=== PATIENT | female | born 1995 | race Two or more races ===

== ENCOUNTER 2020-06-04 13:30 | Outpatient (REF) | payer MEDICAID, SELFPAY ==
--- NOTE | 2020-06-04 13:39 | US_ITS ---
EXAMINATION: US DIAGNOSTIC ULTRASOUND BREAST (AXILLA), RIGHT CLINICAL INFORMATION: 24-year-old female with fullness and intermittent tenderness right axilla for approximately 2 weeks. No palpable breast mass or discharge. Family history breast cancer maternal aunt and paternal aunt. No prior imaging. COMPARISON: None. TECHNIQUE: Ultrasound right axilla is targeted to the area of clinical concern. Patient is able to point to area of concern at time of imaging. Grayscale imaging and color Doppler are performed without and with harmonics. FINDINGS: There is no cystic or solid mass in the right axilla. No lymphadenopathy. No skin thickening or edema tracking in soft tissue planes. Results are discussed with the patient at time of visit. US/US breast RT limited IMPRESSION: Unremarkable ultrasound right axilla. No lymphadenopathy or other mass. ASSESSMENT: BI-RADS 1: Negative RECOMMENDATION: Patient should be managed based on the clinical impression.
== END 2020-06-04 13:31 | disposition home or self-care (01) ==
LOC: HO.MAMMO 13:30
PROVIDERS: PCP Student in an Organized Health Care Education/Training Program; Visit Provider Student in an Organized Health Care Education/Training Program
DX: R22.31 Localized swelling, mass and lump, right upper limb (principal)
CPT/HCPCS: 76642

== ENCOUNTER 2020-11-02 11:52 | Outpatient (REF) | payer OTHER, SELFPAY ==
[2020-11-02 14:14] LABS: MANUAL DIFF FLAG NO
[2020-11-02 14:23] LABS: Basophils Percent Auto 0.3 % (0-2); Eosinophils Percent Auto 0.6 % (0-4); Hematocrit 39.3 % (37-47); Hemoglobin 12.8 g/dl (12.0-16.0); Lymphocytes Absolute Auto 1.4 X10*3/uL (1.2-4.9); Lymphocytes Percent Auto 43.4 % (20-40); Mean Corpuscular HGB Conc 32.6 g/dl (31.0-35.0); Mean Corpuscular Hemoglobin 27.6 pg (27.0-33.0); Mean Corpuscular Volume 84.9 fL (80-98); Mean Platelet Volume 11.4 fL (9.4-12.3); Monocytes Absolute Auto 0.2 X10*3/uL (0.1-1.2); Monocytes Percent Auto 7.2 % (2-11); Neutrophils Absolute Auto 1.5 X10*3/uL (2.0-8.3); Neutrophils Percent Auto 48.5 % (45-73); Platelet Count 229 X10*3/uL (160-400); Red Blood Count 4.63 X10*6/uL (4.20-5.50); Red Cell Distribution Width 12.3 % (11.0-16.0); White Blood Count 3.2 X10*3/uL (4.8-10.8)
[2020-11-02 14:53] LABS: Alanine Aminotransferase 26 U/L (0-31); Albumin Level 4.4 g/dL (3.5-5.0); Alkaline Phosphatase 62 U/L (39-117); Anion Gap 14 (12-20); Aspartate Amino Transferase 26 U/L (5-31); Bilirubin Total 0.5 mg/dL (0.0-1.0); Blood Urea Nitrogen 9 mg/dL (9-16); Calcium 8.8 mg/dL (8.4-10.2); Carbon Dioxide 23 mmol/L (22-29); Chloride 106 mmol/L (96-108); Cholesterol 172 mg/dL; Estimated Glomerular Filt Rate > 60; Glucose Fasting 90 mg/dL (60-99); HDL Cholesterol 34 mg/dL; LDL Cholesterol Calculated 117 mg/dl; Potassium 3.9 mmol/L (3.3-5.1); Sodium 139 mmol/L (135-145); Total Protein 7.5 g/dL (6.5-8.0); Triglycerides 106 mg/dL
[2020-11-02 15:16] LABS: TSH reflex Free T4 1.27 uIU/mL (0.32-4.0)
[2020-11-02 15:53] LABS: Vitamin B12 259 pg/mL (200-900)
[2020-11-07 08:17] LABS: Vitamin D 25-OH, D2 <4 ng/mL; Vitamin D 25-OH, D3 24 ng/mL; Vitamin D 25-OH, Total 24 ng/mL (30-100)
[2020-11-08 08:57] LABS: Testosterone, Total 25 ng/dL (2-45)
== END 2020-11-02 11:53 | disposition home or self-care (01) ==
LOC: HO.HMGCLDS 11:52
PROVIDERS: PCP Internal Medicine; Visit Provider Internal Medicine
DX: L68.0 Hirsutism (principal); R53.83 Other fatigue; R00.0 Tachycardia, unspecified; M79.629 Pain in unspecified upper arm; R10.9 Unspecified abdominal pain; Z76.89 Persons encountering health services in other specified circumstances
CPT/HCPCS: 36415; 80053; 80061; 82306; 82607; 84403; 84443; 85025

== ENCOUNTER 2020-11-14 08:04 | Outpatient (REF) | payer OTHER, SELFPAY ==
--- NOTE | ~2020-11-14 | XR_ITS ---
EXAMINATION: XR SHOULDER, RIGHT CLINICAL INFORMATION: Pain. COMPARISON: None TECHNIQUE: AP neutral, scapular Y, and axillary views of the right shoulder. FINDINGS: The bones and soft tissues are normal. No fracture. Glenohumeral and acromioclavicular alignment is anatomic with normal joint space. No abnormal soft tissue calcifications. XR/XR shoulder LT min 2V IMPRESSION: Normal right shoulder. EXAMINATION: XR SHOULDER, LEFT CLINICAL INFORMATION: Pain. COMPARISON: None TECHNIQUE: AP neutral, scapular Y, and axillary views of the left shoulder. FINDINGS: The bones and soft tissues are normal. No fracture. Glenohumeral and acromioclavicular alignment is anatomic with normal joint space. No abnormal soft tissue calcifications. IMPRESSION: Normal left shoulder.
--- NOTE | ~2020-11-14 | XR_ITS ---
EXAMINATION: XR SHOULDER, RIGHT CLINICAL INFORMATION: Pain. COMPARISON: None TECHNIQUE: AP neutral, scapular Y, and axillary views of the right shoulder. FINDINGS: The bones and soft tissues are normal. No fracture. Glenohumeral and acromioclavicular alignment is anatomic with normal joint space. No abnormal soft tissue calcifications. XR/XR shoulder RT min 2V IMPRESSION: Normal right shoulder. EXAMINATION: XR SHOULDER, LEFT CLINICAL INFORMATION: Pain. COMPARISON: None TECHNIQUE: AP neutral, scapular Y, and axillary views of the left shoulder. FINDINGS: The bones and soft tissues are normal. No fracture. Glenohumeral and acromioclavicular alignment is anatomic with normal joint space. No abnormal soft tissue calcifications. IMPRESSION: Normal left shoulder.
== END 2020-11-14 08:05 | disposition home or self-care (01) ==
LOC: HO.HOSX 08:04
PROVIDERS: Visit Provider Physician Assistant
DX: G24.9 Dystonia, unspecified (principal); M25.512 Pain in left shoulder; M25.511 Pain in right shoulder
CPT/HCPCS: 73030; 99202

== ENCOUNTER 2020-11-21 09:10 | Outpatient (REF) | payer OTHER, SELFPAY ==
--- NOTE | ~2020-11-21 | US_ITS ---
EXAMINATION: US ABDOMEN COMPLETE CLINICAL INFORMATION: Unspecified abdominal pain. COMPARISON: None TECHNIQUE: Real-time imaging of the abdominal viscera. FINDINGS: PANCREAS: Normal. ABDOMINAL AORTA: The proximal, mid, and distal segments are normal in caliber. INFERIOR VENA CAVA: Visualized portions are normal. LIVER: Normal. The liver is normal in size. The liver contour is normal. Parenchymal echogenicity is normal. No focal hepatic lesion. There is no intrahepatic biliary duct dilatation seen. GALLBLADDER: Normal. The gallbladder is physiologically distended without evidence of stones, sludge, polyps, wall thickening or pericholecystic fluid. COMMON BILE DUCT: Normal in caliber measuring 0.3 cm in diameter. RIGHT KIDNEY: Normal. No hydronephrosis. No renal calculi or focal parenchymal lesions. The kidney measures 10.8 cm in maximum dimension. LEFT KIDNEY: Normal. No hydronephrosis. No renal calculi or focal parenchymal lesions. The kidney measures 10.8 cm in maximum dimension. SPLEEN: Normal. The spleen measures 8.8 cm in maximum dimension. FREE FLUID: None. US/US abdomen complete IMPRESSION: Unremarkable exam.
== END 2020-11-21 09:11 | disposition home or self-care (01) ==
LOC: HO.HMGCX 09:10
PROVIDERS: Visit Provider Internal Medicine
DX: R10.9 Unspecified abdominal pain (principal)
CPT/HCPCS: 76700

== ENCOUNTER 2021-01-01 14:03 | Outpatient (REF) | payer OTHER, SELFPAY ==
[2021-01-03 19:31] LABS: TS Negative Control Passed; TS Panel A 0; TS Panel B 0; TS Positive Control Passed; TSpotTB Negative (SeeBelow)
== END 2021-01-01 14:04 | disposition home or self-care (01) ==
LOC: HO.LAB 14:03
PROVIDERS: PCP Internal Medicine; Visit Provider Internal Medicine
DX: Z11.1 Encounter for screening for respiratory tuberculosis (principal)
CPT/HCPCS: 36415; 86481

== ENCOUNTER → 2021-01-10 13:01 | Outpatient (BNVA) | payer OTHER, SELFPAY | PROVIDERS: PCP Internal Medicine; Visit Provider Internal Medicine | DX: L68.0 Hirsutism (principal); E55.9 Vitamin D deficiency, unspecified | CPT/HCPCS: 99202 ==

== ENCOUNTER 2021-01-11 07:28 | Outpatient (REF) | payer OTHER, SELFPAY ==
[2021-01-11 08:31] LABS: Estimated Average Glucose 94 mg/dL; Hemoglobin A1c % 4.9 %
[2021-01-11 08:34] LABS: Glucose Fasting 93 mg/dL (60-99)
[2021-01-11 08:41] LABS: Alanine Aminotransferase 14 U/L (0-31); Albumin Level 4.4 g/dL (3.5-5.0); Alkaline Phosphatase 54 U/L (39-117); Anion Gap 13 (12-20); Aspartate Amino Transferase 19 U/L (5-31); Bilirubin Total 0.4 mg/dL (0.0-1.0); Blood Urea Nitrogen 9 mg/dL (9-16); Calcium 8.9 mg/dL (8.4-10.2); Carbon Dioxide 22 mmol/L (22-29); Chloride 105 mmol/L (96-108); Cholesterol 154 mg/dL; Estimated Glomerular Filt Rate > 60; Glucose Random 93 mg/dL (60-115); HDL Cholesterol 37 mg/dL; LDL Cholesterol Calculated 94 mg/dl; Potassium 3.9 mmol/L (3.3-5.1); Sodium 136 mmol/L (135-145); Total Protein 7.4 g/dL (6.5-8.0); Triglycerides 118 mg/dL
[2021-01-11 09:02] LABS: Free T4 (Free Thyroxine) 1.01 ng/dL (0.71-1.85); HCG Quantitative < 2 mIU/mL; Thyroid Stimulating Hormone 2.01 uIU/mL (0.32-4.0); Vitamin D 25-OH Total 24.7 ng/mL (>30)
[2021-01-11 10:32] LABS: Glucose 1 Hour 137 mg/dL
[2021-01-11 11:04] LABS: Glucose 2 Hour 101 mg/dL
[2021-01-12 19:02] LABS: Follicle Stimulating Hormone 4.1 mIU/mL; Prolactin 14.1 ng/mL
[2021-01-12 21:02] LABS: LDL Cholesterol Direct 99 mg/dL (<100)
[2021-01-14 17:27] LABS: DHEA Sulfate 279 mcg/dL (18-391); Sex Hormone Binding Globulin 16 nmol/L (17-124)
[2021-01-14 18:01] LABS: Adrenocorticotropic Hormone 11 pg/mL (6-50)
[2021-01-16 15:46] LABS: Testosterone, Free 3.8 pg/mL (0.1-6.4); Testosterone, Total 20 ng/dL (2-45)
[2021-01-16 18:17] LABS: Androstenedione 185 ng/dL
== END 2021-01-11 07:29 | disposition home or self-care (01) ==
LOC: HO.LAB 07:28
PROVIDERS: PCP Internal Medicine; Visit Provider Internal Medicine
DX: L68.0 Hirsutism (principal); E55.9 Vitamin D deficiency, unspecified
CPT/HCPCS: 36415; 80053; 80061; 82024; 82157; 82306; 82533; 82627; 82670; 82681; 83001; 83002; 83036; 83498; 83721; 84146; 84270; 84402; 84403; 84439; 84443; 84702

== ENCOUNTER → 2021-04-24 11:58 | Outpatient (BNVA) | payer OTHER, SELFPAY | PROVIDERS: PCP Internal Medicine; Visit Provider Internal Medicine ==

== ENCOUNTER 2021-05-03 13:55 | Outpatient (REF) | payer OTHER, SELFPAY ==
[2021-05-03 14:55] LABS: Influenza A PCR NEGATIVE (Negative); Influenza B PCR NEGATIVE (Negative); Resp Syncy Virus RNA Qual PCR NEGATIVE (Negative); SARS COV2 PCR INHOUSE NEGATIVE (Negative)
== END 2021-05-03 13:56 | disposition home or self-care (01) ==
LOC: HO.LNP 13:55
PROVIDERS: Visit Provider Physician Assistant Medical
DX: Z20.822 Contact with and (suspected) exposure to COVID-19 (principal); J06.9 Acute upper respiratory infection, unspecified
CPT/HCPCS: 0241U

== ENCOUNTER 2022-11-07 12:24 | Outpatient (REF) | payer OTHER, SELFPAY ==
[2022-11-07 13:57] LABS: MANUAL DIFF FLAG NO
[2022-11-07 14:06] LABS: Basophils Percent Auto 0.4 % (0-2); Eosinophils Absolute Auto 0.1 X10*3/uL (0.0-0.4); Eosinophils Percent Auto 1.6 % (0-4); Hematocrit 41.3 % (37.0-47.0); Hemoglobin 13.5 g/dl (12.0-16.0); Imm Gran Abs Auto 0.02 X10*3/uL (0.00-0.03); Imm Gran Pct Auto 0.3 % (0.0-0.4); Lymphocytes Absolute Auto 1.8 X10*3/uL (1.2-4.9); Lymphocytes Percent Auto 27.2 % (20-40); Mean Corpuscular HGB Conc 32.7 g/dl (31.0-35.0); Mean Corpuscular Hemoglobin 28.5 pg (27.0-33.0); Mean Corpuscular Volume 87.1 fL (80.0-98.0); Mean Platelet Volume 11.1 fL (9.4-12.3); Monocytes Absolute Auto 0.4 X10*3/uL (0.1-1.2); Monocytes Percent Auto 6.4 % (2-11); Neutrophils Absolute Auto 4.3 x10*3/uL (2.0-8.3); Neutrophils Percent Auto 64.1 % (45-73); Platelet Count 289 X10*3/uL (160-400); Red Blood Count 4.74 X10*6/uL (4.20-5.50); Red Cell Distribution Width 12.3 % (11.0-16.0); White Blood Count 6.7 X10*3/uL (4.8-10.8)
[2022-11-07 14:31] LABS: Alanine Aminotransferase 16 U/L (0-31); Albumin Level 4.2 g/dL (3.5-5.0); Alkaline Phosphatase 51 U/L (39-117); Anion Gap 13 (12-20); Aspartate Amino Transferase 23 U/L (5-31); Bilirubin Total 0.6 mg/dL (0.0-1.0); Blood Urea Nitrogen 8 mg/dL (9-16); Calcium 8.9 mg/dL (8.4-10.2); Carbon Dioxide 23 mmol/L (22-29); Chloride 108 mmol/L (96-108); Estimated Glomerular Filt Rate > 60; Glucose Random 81 mg/dL (60-115); Potassium 4.1 mmol/L (3.3-5.1); Sodium 140 mmol/L (135-145); Total Protein 7.6 g/dL (6.5-8.0)
[2022-11-07 14:34] LABS: TSH reflex Free T4 1.79 uIU/mL (0.32-4.0)
[2022-11-09 23:20] LABS: TS Negative Control Passed; TS Panel A 1; TS Panel B 0; TS Positive Control Passed; TSpotTB Negative (Negative)
[2022-11-14 13:03] LABS: Vitamin D 25-OH, D2 <4 ng/mL; Vitamin D 25-OH, D3 19 ng/mL; Vitamin D 25-OH, Total 19 ng/mL (30-100)
== END 2022-11-07 12:25 | disposition home or self-care (01) ==
LOC: HO.HMGCLDS 12:24
PROVIDERS: PCP Internal Medicine; Visit Provider Internal Medicine
DX: R53.83 Other fatigue (principal); E55.9 Vitamin D deficiency, unspecified; F41.9 Anxiety disorder, unspecified; B35.1 Tinea unguium; Z11.1 Encounter for screening for respiratory tuberculosis
CPT/HCPCS: 36415; 80053; 82306; 84443; 85025; 86481; 87101; 87220

== ENCOUNTER 2023-01-06 08:51 | Outpatient (AMB) | payer OTHER, SELFPAY ==
--- NOTE | 2023-01-06 10:09 | MHC.OFFWIV ---
Intake Vital Signs 01/06/23 10:10 Height 5 ft 5 in BP 110/70 Blood Pressure Location Lt brachial Position Sitting Pulse 83 Pulse Source Pulse Oximeter Temp 96.1 F L Temp Source Temporal Artery Scan Pulse Oximetry (%) 99 Oxygen Delivery Method Room Air Intake Visit Reasons: EST/fatigue/[id number] Intake Note: Pt is here c/o feeling fatigue for a few days. Pt states her arms and joints also feel sore. Patient Tobacco Use Status: Never used Tobacco Allergies No Known Allergies Allergy (Verified 01/06/23 10:33) Do you need a note to return to daycare/school/sports/work: No HPI EST/fatigue/[id number] HPI Details 27-year-old female presents to the office for a sick visit. Patient is complaining of feeling tired since yesterday night. Could not go to school today because of fatigue. She is also complaining of some pain in the foot. 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 She is requesting a note for school. [facility] Medical History Vitamin D deficiency Family History Maternal Aunt Breast cancer Paternal Aunt Breast cancer Father Kidney stones High cholesterol Mother Hypothyroid Social History Housing: House Alcohol intake: never Patient Tobacco Use Status: Never used Tobacco e-Cigarette/Vaping Use: Never Used Current occupational status: unemployed Current occupation: right handed Cognitive needs: No Hearing needs: No Vision needs: No Physical Exam Vital Signs: Last Vital Signs Temp 96.1 F L 01/06/23 10:10 Pulse 83 01/06/23 10:10 BP 110/70 01/06/23 10:10 Pulse Ox 99 01/06/23 10:10 Oxygen Delivery Method Room Air 01/06/23 10:10 Const General: cooperative and healthy appearing Nutritional Appearance: well nourished Orientation/consciousness: patient oriented x3 Limitations: no limitations HEENT Head: Yes normal to inspection Eyes General: appearance normal, both eyes and all related structures Neck Neck: Yes normal visual inspection Chest Chest palpation & inspection: normal palpation of entire chest wall Resp Effort & Inspection: normal respiratory effort Neuro General: patient oriented x3 Assessment & Plan Assessment & Plan (1) Fatigue: Code(s): R53.83 - Other fatigue Plan: Self-limiting illness. Note for school given. Coding Level of Care Code Est Pt Level 3 (82686) Diagnoses Fatigue R53.83
[2023-01-06 10:10] VITALS: BP 110/70; PULSE 83; TEMP 35.6; O2SAT 99
== END 2023-01-06 11:36 | disposition home or self-care (01) ==
PROVIDERS: PCP Internal Medicine; Visit Provider Internal Medicine
DX: R53.83 Other fatigue (principal)
CPT/HCPCS: 99213

== ENCOUNTER 2023-01-06 09:09 | Outpatient (REF) | payer OTHER, SELFPAY ==
[2023-01-06 12:38] LABS: Alanine Aminotransferase 11 U/L (0-31); Albumin Level 4.3 g/dL (3.5-5.0); Alkaline Phosphatase 52 U/L (39-117); Anion Gap 8 (12-20); Aspartate Amino Transferase 15 U/L (5-31); Bilirubin Direct 0.2 mg/dL (0.0-0.5); Bilirubin Total 0.4 mg/dL (0.0-1.0); Blood Urea Nitrogen 13 mg/dL (9-16); Calcium 9.2 mg/dL (8.4-10.2); Carbon Dioxide 27 mmol/L (22-29); Chloride 107 mmol/L (96-108); Estimated Glomerular Filt Rate > 60; Glucose Random 84 mg/dL (60-115); Potassium 3.9 mmol/L (3.3-5.1); Sodium 138 mmol/L (135-145); Total Protein 7.5 g/dL (6.5-8.0)
== END 2023-01-06 09:10 | disposition home or self-care (01) ==
LOC: HO.HMGCLDS 09:09
PROVIDERS: PCP Internal Medicine; Visit Provider Internal Medicine
DX: B35.1 Tinea unguium (principal)
CPT/HCPCS: 36415; 80053; 82248

== ENCOUNTER 2023-04-28 11:16 | Outpatient (AMB) | payer OTHER, SELFPAY ==
[2023-04-28 11:16] VITALS: BP 112/78; PULSE 104; O2SAT 100; BMI 31.7
--- NOTE | 2023-04-28 11:16 | A.OFFPC_ITS ---
Vital Signs 04/28/23 11:16 Height 5 ft 5 in Weight 190 lb 8 oz BMI 31.7 BP 112/78 Blood Pressure Location Rt brachial Position Sitting Pulse 104 H Pulse Source Pulse Oximeter Pulse Oximetry (%) 100 Oxygen Delivery Method Room Air Intake Visit Reasons: PE- NEEDS PHQ9/THRIVE Allergies No Known Allergies Allergy (Verified 04/28/23 11:16) Medication List - Last Reconciled 04/28/23 by Luann Lopez MD cholecalciferol (vitamin D3) 25 mcg PO DAILY 90 days dextroamphetamine-amphetamine 15 mg ER (Adderall XR) 15 mg PO DAILY terbinafine HCl 250 mg PO DAILY Tobacco use date assessed: 04/28/23 Dental Screening Dental Screen Date: 04/28/23 Did you have a dental visit in the last 12 months?: Yes Did you have a dental problem in the last 6 months where you did not have access to dental care?: No Was dental information given to patient?: Patient has dentist HPI PE- NEEDS PHQ9/THRIVE HPI Details Patient is 27-year-old female came in today for physical exam Patient continued to complain of hirsutism and would like to be evaluated for that , she does not want to have appointment with OBGYN Also having difficulty losing weight her BMI is 31.7, patient says that she is controlling her diet and exercise and still can not lose weight I am booking her appointment with a dietitian Patient have generalized anxiety disorder she has tried fluoxetine in the past but did not take it for long enough She says that during the day she is okay but at night when she lays down to sleep she can not sleep as she start thinking. Patient says that the days she works she is tired so she fall asleep but when she is not working it is difficult for her to sleep I have sent few tablets of Xanax patient may take that 1 hour before bedtime as needed Patient have vitamin-D deficiency for that she is taking supplement Lab order placed to be done fasting We will create a telemedicine visit in 3 weeks to follow-up on hurt sleep pattern as well as labs and ultrasound report. Physical exam 1 year [facility] Medical History Vitamin D deficiency Family History Maternal Aunt Breast cancer Paternal Aunt Breast cancer Father Kidney stones High cholesterol Mother Hypothyroid Social History Housing: House Alcohol intake: never Patient Tobacco Use Status: Never used Tobacco e-Cigarette/Vaping Use: Never Used service: No Current occupational status: unemployed Current occupation: right handed Cognitive needs: No Hearing needs: No Vision needs: No Questionnaire PHQ-9 Over the last 2 weeks, how often have you been bothered by any of the following problems? 1. Little interest or pleasure in doing things: several days 2. Feeling down, depressed, or hopeless: several days 3. Trouble falling or staying asleep, or sleeping too much: nearly every day 4. Feeling tired or having little energy: nearly every day 5. Poor appetite or overeating: more than half the days 6. Feeling bad about yourself - or that you are a failure or have let yourself or your family down: not at all 7. Trouble concentrating on things, such as reading the newspaper or watching television: nearly every day 8. Moving or speaking so slowly that other people could have noticed. Or the opposite - being so fidgety or restless that you have been moving around a lot more than usual: nearly every day 9. Thoughts that you would be better off or of hurting yourself in some way: not at all Total score: 16 Depression Screening Interpretation: Positive Depression Screening Follow-up: Existing condition and New Medication prescribed Depression Screening Done: Yes 36191 - PHQ-9 Billing: Yes Source: Developed by Drs. Adam Mir, Bing Oviedo, Fortino Dodson and colleagues, with an educational spike from [employer]. Thrive Questionnaire I am a: Patient What is your living situation today?: I have a steady place to live Within the past 12 months, did the food you bought not last and you didn't have the money to get more?: Never true Within the past 12 months, did you worry whether your food would run out before you got money to buy more?: Never true Please select the resources that you would like help with: None Currently or been in a relationship where the following occur: no concerns reported AUDIT C Alcohol Use Questionnaire (AUDIT-C) 1. How often do you have a drink containing alcohol?: Never 3. How often do you have six or more drinks on one occasion?: Never Total Score: 0 Score Reviewed/Action Taken: Yes AGUS-7 AMB Questionnaire AGUS-7 Feeling nervous, anxious, or on edge: 2 = More than half the days Not being able to stop or control worryin = Several days Worrying too much about different things: 2 = More than half the days Trouble relaxin = Several days Being so restless that it is hard to sit still: 2 = More than half the days Becoming easily annoyed or irritable: 1 = Several days Feeling afraid as if something awful might happen: 1 = Several days Total AGUS-7 score (0-4 normal; 5-9 mild; 10-14 moderate; 15-21 severe): 10 Source: Developed by Drs. Adam Mir, Bing Oviedo, Fortino Dodson and colleagues, with an educational spike from [employer]. AGUS-7 Assessment Billing AGUS-7 Assessment Tool: AGUS-7 Assessment 84229 Review of Systems Const Denies chills, Denies fever(s) and Denies headache(s) Eyes Denies blurry vision ENT Denies headache(s), Denies nasal discharge, Denies nasal obstruction, Denies odynophagia and Denies sinus pain Card Denies chest pain at rest and Denies chest pain with activity Resp Denies cough and Denies hemoptysis GI Denies diarrhea, Denies odynophagia, Denies vomiting and Denies hematemesis Reports as per HPI Musc Denies abnormal gait Skin/Breast Reports as per HPI Neuro Denies Neuro-related abnormal movements, Denies Abnormal speech present, Denies abnormal gait, Denies headache(s) and Denies Sensory deficit (Neuro) Psych Denies mood swings and Denies paranoia Endo Reports as per HPI Dar/Lymph Reports as per HPI Aller/Immun Reports as per HPI Physical exam (Primary Care) Vital Signs: Last Vital Signs Pulse 104 H 04/28/23 11:16 BP 112/78 04/28/23 11:16 Pulse Ox 100 04/28/23 11:16 Oxygen Delivery Method Room Air 04/28/23 11:16 BMI result Body Mass Index 31.7 Tobacco/Smoking Status: Tobacco use Status Tobacco use date assessed 04/28/23 04/28/23 11:24 Patient Tobacco Use Status Never used Tobacco 04/28/23 11:24 e-Cigarette/Vaping Use Never Used 04/28/23 11:24 PHQ-9: PHQ-9 Score PHQ-9: Total score 16 04/28/23 11:53 Depression Screening Interpretation: Positive Depression Screening Follow-up: Existing condition and New Medication prescribed Currently or been in a relationship where the following occur: no concerns reported Const General: cooperative, comfortable and no acute distress Orientation/consciousness: patient oriented x3 HENMT Head: Yes normocephalic and Yes atraumatic Eyes General: appearance normal, both eyes and all related structures Pupils: Equal, round and reactive pupils present EOM: EOMs intact bilaterally Neck Neck: Yes supple and No lymphadenopathy Thyroid: Thyroid normal Lymphatic: no lymphadenopathy noted Chest Breast/axilla palpation: normal palpation of the breasts Resp Effort & Inspection: normal respiratory effort and able to speak in complete sentences Auscultation: clear to auscultation bilaterally Cardio Heart sounds: S1 normal heart sound present and S2 normal heart sound present GI Palpation (GI): Soft to palpation and nontender Auscultation: normal bowel sounds General: Yes no CVA tenderness Back/Spine/Pelvis Back: no CVA tenderness Skin General skin exam: elasticity normal and turgor normal Neuro General: patient oriented x3 and gait normal Cranial nerves: Yes Equal, round and reactive pupils present Speech: No Abnormal speech present Sensory Exam: No Sensory deficit (Neuro) Coordination: tandem gait normal and Romberg test negative Extrem General: Yes normal exam except as noted and No edema Assessment and Plan Assessment & Plan (1) Encounter for general adult medical examination with abnormal findings: Code(s): Z00.01 - Encounter for general adult medical examination with abnormal findings (2) Hirsutism: Code(s): L68.0 - Hirsutism (3) Anxiety, generalized: Code(s): F41.1 - Generalized anxiety disorder (4) Difficulty sleeping: Code(s): G47.9 - Sleep disorder, unspecified (5) Obesity due to excess calories: Code(s): E66.09 - Other obesity due to excess calories Qualifiers: Body mass index: BMI 31.0-31.9 Obesity classification: adult class 1 (BMI 30 - 34.9) Serious obesity comorbidity presence: without serious comorbidity Qualified Code(s): E66.09 - Other obesity due to excess calories; Z68.31 - Body mass index [BMI] 31.0-31.9, adult Plan Patient is 27-year-old female came in today for physical exam Patient continued to complain of hirsutism and would like to be evaluated for that , she does not want to have appointment with OBGYN Also having difficulty losing weight her BMI is 31.7, patient says that she is controlling her diet and exercise and still can not lose weight I am booking her appointment with a dietitian Patient have generalized anxiety disorder she has tried fluoxetine in the past but did not take it for long enough She says that during the day she is okay but at night when she lays down to sleep she can not sleep as she start thinking. Patient says that the days she works she is tired so she fall asleep but when she is not working it is difficult for her to sleep I have sent few tablets of Xanax patient may take that 1 hour before bedtime as needed Patient have vitamin-D deficiency for that she is taking supplement Lab order placed to be done fasting We will create a telemedicine visit in 3 weeks to follow-up on hurt sleep pattern as well as labs and ultrasound report. Physical exam 1 year Orders: Orders US pelvic complete Today L68.0 - Hirsutism Complete Blood Count Auto Diff Today E66.09 - Other obesity due to excess calories, F41.1 - Generalized anxiety disorder, G47.9 - Sleep disorder, unspecified, L68.0 - Hirsutism, Z00.01 - Encounter for general adult medical examination with abnormal findings Lipid Panel Today E66.09 - Other obesity due to excess calories, F41.1 - Generalized anxiety disorder, G47.9 - Sleep disorder, unspecified, L68.0 - Hirsutism, Z00.01 - Encounter for general adult medical examination with abnormal findings TSH reflex Free T4 Today E66.09 - Other obesity due to excess calories, F41.1 - Generalized anxiety disorder, G47.9 - Sleep disorder, unspecified, L68.0 - Hirsutism, Z00.01 - Encounter for general adult medical examination with abnormal findings Testosterone, Total Today E66.09 - Other obesity due to excess calories, F41.1 - Generalized anxiety disorder, G47.9 - Sleep disorder, unspecified, L68.0 - Hirsutism, Z00.01 - Encounter for general adult medical examination with abnormal findings Comprehensive Independence. Panel Fast Today E66.09 - Other obesity due to excess calories, F41.1 - Generalized anxiety disorder, G47.9 - Sleep disorder, unspecified, L68.0 - Hirsutism, Z00.01 - Encounter for general adult medical examination with abnormal findings Medications: New pantoprazole 20 mg PO DAILY 30 tabs 0RF alprazolam (Xanax) 0.25 mg PO BEDTIME PRN 30 tabs 0RF sleep Discontinued terbinafine HCl Discontinued Reason: Doctor's Order 250 mg PO DAILY 30 tabs 2RF Coding Level of Care Code Est Pt Prev Care 18-39y(70503) Diagnoses Encounter for general adult medical examination with abnormal findings Z00.01 Hirsutism L68.0 Anxiety, generalized F41.1 Difficulty sleeping G47.9 Class 1 obesity due to excess calories without serious comorbidity with body mass index (BMI) of 31.0 to 31.9 in adult E66.09; Z68.31 Body mass index: BMI 31.0-31.9 Obesity classification: adult class 1 (BMI 30 - 34.9) Serious obesity comorbidity presence: without serious comorbidity Additional Codes AGUS-7 Assessment Billing - AGUS-7 Assessment Tool: AGUS-7 Assessment [id number] ([id number])
== END 2023-04-28 12:45 | disposition home or self-care (01) ==
PROVIDERS: Visit Provider Internal Medicine
DX: Z00.00 Encounter for general adult medical examination without abnormal findings (principal); L68.0 Hirsutism; F41.1 Generalized anxiety disorder; G47.9 Sleep disorder, unspecified; E66.09 Other obesity due to excess calories; Z68.31 Body mass index [BMI] 31.0-31.9, adult
CPT/HCPCS: 96127; 99395

== ENCOUNTER 2023-05-16 06:30 | Outpatient (REF) | payer OTHER, SELFPAY ==
[2023-05-16 11:11] LABS: MANUAL DIFF FLAG NO
[2023-05-16 11:17] LABS: Basophils Percent Auto 0.5 % (0-2); Eosinophils Absolute Auto 0.1 X10*3/uL (0.0-0.4); Eosinophils Percent Auto 2.1 % (0-4); Hematocrit 40.5 % (37.0-47.0); Imm Gran Abs Auto 0.02 X10*3/uL (0.00-0.03); Imm Gran Pct Auto 0.3 % (0.0-0.4); Lymphocytes Absolute Auto 2.5 X10*3/uL (1.2-4.9); Mean Corpuscular HGB Conc 32.1 g/dl (31.0-35.0); Mean Corpuscular Hemoglobin 28.6 pg (27.0-33.0); Mean Platelet Volume 11.2 fL (9.4-12.3); Monocytes Absolute Auto 0.3 X10*3/uL (0.1-1.2); Monocytes Percent Auto 5.2 % (2-11); Neutrophils Absolute Auto 3.3 x10*3/uL (2.0-8.3); Neutrophils Percent Auto 51.9 % (45-73); Platelet Count 273 X10*3/uL (160-400); Red Blood Count 4.55 X10*6/uL (4.20-5.50); Red Cell Distribution Width 12.6 % (11.0-16.0); White Blood Count 6.3 X10*3/uL (4.8-10.8)
[2023-05-16 11:46] LABS: Alanine Aminotransferase 14 U/L (0-31); Albumin Level 4.2 g/dL (3.5-5.0); Alkaline Phosphatase 59 U/L (39-117); Anion Gap 11 (12-20); Aspartate Amino Transferase 18 U/L (5-31); Bilirubin Total 0.4 mg/dL (0.0-1.0); Blood Urea Nitrogen 11 mg/dL (9-16); Calcium 8.8 mg/dL (8.4-10.2); Carbon Dioxide 26 mmol/L (22-29); Chloride 103 mmol/L (96-108); Cholesterol 137 mg/dL (<200); Estimated Glomerular Filt Rate > 60; Glucose Fasting 83 mg/dL (60-99); HDL Cholesterol 39 mg/dL (>40); LDL Cholesterol Calculated 72 mg/dL (<100); Sodium 136 mmol/L (135-145); Total Protein 7.6 g/dL (6.5-8.0); Triglycerides 132 mg/dL (<150)
[2023-05-16 11:54] LABS: TSH reflex Free T4 2.47 uIU/mL (0.32-4.0)
[2023-05-20 16:03] LABS: Testosterone, Total 27 ng/dL (2-45)
== END 2023-05-16 06:31 | disposition home or self-care (01) ==
LOC: HO.HMGCLDS 06:30
PROVIDERS: PCP Internal Medicine; Visit Provider Internal Medicine
DX: Z00.01 Encounter for general adult medical examination with abnormal findings (principal); L68.0 Hirsutism; F41.1 Generalized anxiety disorder; G47.9 Sleep disorder, unspecified; E66.09 Other obesity due to excess calories
CPT/HCPCS: 36415; 80053; 80061; 84403; 84443; 85025

== ENCOUNTER 2023-05-18 10:09 | Outpatient (AMB) | payer OTHER, SELFPAY ==
[2023-05-18 10:11] VITALS: BMI 30.6
--- NOTE | 2023-05-18 10:11 | MHC.OFFVIS ---
Intake Vital Signs 05/18/23 10:11 Height 5 ft 5 in Weight 184 lb BMI 30.6 Intake Visit Reasons: New patient Annual Intake Note: Having facial hair, weight gain, and acne. And was suggested that it can possible be hormonal issue. 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 She states she is a virgin and does not wash to have a pelvic exam. She is 27 years old she says she has had 2 of the 3 Gardasil vaccines and will be getting the 3rd. She says she had told her PCC she did not want to have a OBGYN refer for all but then she later spoke to her and said it would be okay but she actually is still thought she was coming to talk to me about her hormones she had seen and frozen foods manager 2 years ago for this exact same concern about increased facial hair and acne and had a complete full panel of testing done by the frozen foods manager all results came back as normal. There is a discussion in the chart reference sing discussion of the values and that most likely her issue was somewhat genetic. Patient says she has normal periods they are not too bad in terms of cramping or heaviness they last about 4-5 days. She did notice that the facial hair did start more when she gained some weight in years past she also then had a period where she lost weight because of stress in school but has regained that back. She notices increased facial hair body hair hair on on her toes and other places that is very bothersome to her. She says she has a strong family history of cancer. Again she states she gets regular periods and they are not irregular, though this last 1 seemed to be a little bit late according to her dariel. [facility] Medical History Vitamin D deficiency Family History (Updated 05/18/23 @ 10:17 by MICH Phelps) Maternal Aunt Breast cancer Paternal Aunt Breast cancer Father Kidney stones High cholesterol Mother Hypothyroid Paternal Aunt Colon cancer Social History Housing: House Alcohol intake: never Patient Tobacco Use Status: Never used Tobacco e-Cigarette/Vaping Use: Never Used service: No Current occupational status: unemployed Current occupation: right handed Cognitive needs: No Hearing needs: No Vision needs: No Female Reproductive History Menstrual Age of Menarche: 12 Duration of menses: 3-5 days Date of last menstrual period: 05/12/23 control method: none Total pregnancies: 0 Physical Exam Vital Signs: BMI result Body Mass Index 30.6 Const General: healthy appearing, comfortable, no acute distress, well developed and alert Nutritional Appearance: average body habitus Orientation/consciousness: patient oriented x3 Limitations: no limitations HEENT Head: Yes normocephalic Neck Neck: Yes normal visual inspection Thyroid: Thyroid normal Chest Chest palpation & inspection: normal inspection of the chest Breast/axilla inspection: normal inspection of the breasts and normal inspection of the axillae Breast/axilla palpation: normal palpation of the breasts and normal palpation of the axillae Resp Effort & Inspection: normal respiratory effort GI Inspection: Yes normal to inspection, No Abdominal wall edema and No distended Palpation (GI): Soft to palpation and nontender Other: Patient declined pelvic exam. External Female Exam: normal external appearance Neuro General: patient oriented x3 Assessment & Plan Assessment & Plan (1) Well woman exam (no gynecological exam): Comment: Patient declines pelvic exam today. Code(s): Z00.00 - Encounter for general adult medical examination without abnormal findings (2) Cervical cancer screening: Comment: Patient declines pelvic exam and Pap smear today states she is virginal. Reasons for doing Pap smears discussed. Patient is in the process of getting her Gardasil vaccine series. She will decide when she is ready for her her 1st Pap and pelvic. Code(s): Z12.4 - Encounter for screening for malignant neoplasm of cervix (3) Hirsutism: Code(s): L68.0 - Hirsutism Plan -----Discussed in this visit the following: healthy balanced diet, regular and consistent exercise, getting recommended health screens, doing the best she can for her particular health concerns, kegel exercises, pap smear screening and followup recommendations, mammography screening and SBE, normal changes in cycles in her life stage--- . Reviewed cervical cancer screening and that while most cervical cancers are related to the HPV virus it is not possible to say that all are. Discussed reasons for cervical canc screening an she will decide when she is ready d er . Discussed the many things that can contribute to hirsute is Um and discussed and reviewed all all of the labs that she had had done with endocrinology 2 years ago and the discussion per the frozen foods manager that it was most likely familial and not likely to respond to medications that she would consider. Also reviewed labs that were just recently done by her primary care provider she the patient states she went to the lab this weekend and repeat of some of the testing was already ordered by her primary. Also discussed the possible role of control pills to possibly help with acne but they have not necessarily been shown to help with hirsute is Um. Discussed that she should continue these discussions with her primary care provider and the patient herself stated that what she really wants is another endocrinology referral for 2nd opinion because she really wants to deal with the issue of the facial hair. I did again reviewed the discussed recommendations per endocrinology that were in the chart with her. She says she cannot afford laser. She has no plans to become sexually active until marriage. Also she is concerned about the family history of breast cancer she had 1 maternal aunt that at age 43 who is the sister of her mother and she has a paternal aunt who had breast cancer but has recovered all of the family in question are in [place]. I discussed reviewing her family history as best she can ascertain and discussed with her primary care provider as to whether not she is a candidate to discuss genetic screening for breast cancer and if so her primary can place the referral as appropriate. Also discussed the relationship between weight gain and changing hormonal levels and hirsute is Um and increased acne. Suggested weight loss is still a very important part of her self-care. Patient may return when she is ready for pelvic exam or 1 year. I had offered to repeat all of the endocrinology labs for her but she just had and many of them ordered by her primary and they were drawn this weekend. Patient to follow-up with her primary care provider. Coding Level of Care Code New Pt Prev Care 18-39yr([id number] Diagnoses Well woman exam (no gynecological exam) Z00.00 Cervical cancer screening Z12.4 Hirsutism L68.0
== END 2023-05-18 11:03 | disposition home or self-care (01) ==
LOC: HO.HWS 10:09
PROVIDERS: PCP Internal Medicine; Visit Provider Advanced Practice Midwife
DX: Z01.419 Encounter for gynecological examination (general) (routine) without abnormal findings (principal); L68.0 Hirsutism
CPT/HCPCS: 99385

== ENCOUNTER → 2023-05-18 10:09 | Outpatient (BNVA) | payer OTHER, SELFPAY | PROVIDERS: PCP Internal Medicine; Visit Provider Advanced Practice Midwife ==

== ENCOUNTER 2023-05-26 15:23 | Outpatient (REF) | payer OTHER, SELFPAY ==
--- NOTE | ~2023-05-26 | US_ITS ---
EXAMINATION: US PELVIS, LIMITED CLINICAL INFORMATION: Hirsutism LMP: 05/12/2023 COMPARISON: None available. TECHNIQUE: Transabdominal ultrasound was performed technically limited study. The patient was not prepped for the exam. The bladder only has a small amount of fluid within it. FINDINGS: There is is anteverted and measures 7.3 x 3.0 x 5.3 cm. The endometrium is homogeneous and measures 1.0 cm. The ovaries are small. The right ovary measures 1.8 x 1.6 x 1.7 cm for a volume of 2.6 mL. The left ovary measures 2.5 x 9.3 x 1.0 cm for a volume of 1.2 mL. There is no free fluid within the cul-de-sac US/US pelvic limited IMPRESSION: 1. Normal uterus. 2. Small ovaries.
== END 2023-05-26 15:24 | disposition home or self-care (01) ==
LOC: HO.HMGCX 15:23
PROVIDERS: PCP Internal Medicine; Visit Provider Internal Medicine
DX: L68.0 Hirsutism (principal)
CPT/HCPCS: 76857

== ENCOUNTER 2023-06-04 08:37 | Outpatient (AMB) | payer OTHER, SELFPAY ==
--- NOTE | 2023-06-04 08:55 | A.OFFPC_ITS ---
Intake Visit Reasons: 3 week Follow up ~[phone] Allergies No Known Allergies Allergy (Verified 06/04/23 08:55) Medication List - Last Reconciled 06/04/23 by Luann Lopez MD cholecalciferol (vitamin D3) 25 mcg PO DAILY 90 days dextroamphetamine-amphetamine 15 mg ER (Adderall XR) 15 mg PO DAILY pantoprazole 20 mg PO DAILY tretinoin 0.025% (Retin-A) appl topical Tobacco use date assessed: 06/04/23 Dental Screening Dental Screen Date: 06/04/23 Did you have a dental visit in the last 12 months?: Yes Did you have a dental problem in the last 6 months where you did not have access to dental care?: No Was dental information given to patient?: Patient has dentist HPI 3 week Follow up ~[phone] HPI Details Patient is 27-year-old female this is a tele medicine visit Patient suffers from anxiety which causes difficulty sleeping at night I prescribed alprazolam 0.25 mg tablet patient says that she did well for 1 week and then after that medication stopped working This time I am prescribing lorazepam 1 mg tablet at night patient may take that at night as needed to sleep She also have excessive facial hair, we did the ovarian ultrasound which did not show multiple cyst Her test to stay down level is within normal range She had visit with OBGYN but did not wanted to have a pelvic exam I have placed a referral for patient to be evaluated by endocrinology. However she tells me that she is having yellow vaginal discharge and she feels is bacterial overgrowth We talked about taking a sample from vagina I explained the procedure to the patient, she agrees, she will come to our walk-in clinic and we will send the sample over to lab to see why she has yellow discharge. She tells me that she have a strong family history of breast cancer first-degree little tips other side and she would like to be tested for genes. Referral created [facility] Medical History Vitamin D deficiency Family History Maternal Aunt Breast cancer Paternal Aunt Breast cancer Father Kidney stones High cholesterol Mother Hypothyroid Paternal Aunt Colon cancer Social History Housing: House Alcohol intake: never Patient Tobacco Use Status: Never used Tobacco e-Cigarette/Vaping Use: Never Used service: No Current occupational status: unemployed Current occupation: right handed Cognitive needs: No Hearing needs: No Vision needs: No Female Reproductive History Menstrual Age of Menarche: 12 Questionnaire AUDIT C Alcohol Use Questionnaire (AUDIT-C) 1. How often do you have a drink containing alcohol?: Never 3. How often do you have six or more drinks on one occasion?: Never Total Score: 0 Score Reviewed/Action Taken: Yes Review of Systems Const Denies chills and Denies fever(s) ENT Denies epistaxis and Denies nasal discharge Card Denies chest pain Resp Denies chest congestion, Denies cough and Denies hemoptysis GI Denies diarrhea and Denies nausea Skin/Breast Denies rash Neuro Reports no additional complaints Psych Reports no additional complaints Endo Reports no additional complaints Physical exam (Primary Care) Tobacco/Smoking Status: Tobacco use Status Tobacco use date assessed 06/04/23 06/04/23 08:56 Patient Tobacco Use Status Never used Tobacco 06/04/23 08:56 e-Cigarette/Vaping Use Never Used 06/04/23 08:56 Telehealth Telehealth Location of provider rendering services: practice address Location of patient: address on file Patient Identification confirmed using: Name, : Yes Telehealth method: voice only Patient verbally consented to treatment: Yes Patient verbally consented to billing insurance company: Yes Patient informed of any privacy concerns related to visit: Yes Minutes spent on Phone/Video with Pt.: 20 Assessment and Plan Assessment & Plan (1) Hirsutism: Code(s): L68.0 - Hirsutism (2) Family history of breast cancer in first degree relative: Code(s): Z80.3 - Family history of malignant neoplasm of breast (3) Anxiety, generalized: Code(s): F41.1 - Generalized anxiety disorder (4) Difficulty sleeping: Code(s): G47.9 - Sleep disorder, unspecified (5) Vaginal discharge: Code(s): N89.8 - Other specified noninflammatory disorders of vagina Plan Patient is 27-year-old female this is a tele medicine visit Patient suffers from anxiety which causes difficulty sleeping at night I prescribed alprazolam 0.25 mg tablet patient says that she did well for 1 week and then after that medication stopped working This time I am prescribing lorazepam 1 mg tablet at night patient may take that at night as needed to sleep She also have excessive facial hair, we did the ovarian ultrasound which did not show multiple cyst Her test to stay down level is within normal range She had visit with OBGYN but did not wanted to have a pelvic exam I have placed a referral for patient to be evaluated by endocrinology. However she tells me that she is having yellow vaginal discharge and she feels is bacterial overgrowth We talked about taking a sample from vagina I explained the procedure to the patient, she agrees, she will come to our walk-in clinic and we will send the sample over to lab to see why she has yellow discharge. She tells me that she have a strong family history of breast cancer first-degree little tips other side and she would like to be tested for genes. Referral created Orders: Referrals Endocrinology Referral L68.0 - Hirsutism Genetics Referral Z80.3 - Family history of malignant neoplasm of breast Medications: New lorazepam 1 mg PO BEDTIME PRN 30 tabs 0RF anxiety Coding Level of Care Code Tele Est Pt Level 4 (20806) Diagnoses Hirsutism L68.0 Family history of breast cancer in first degree relative Z80.3 Anxiety, generalized F41.1 Difficulty sleeping G47.9 Vaginal discharge N89.8 Time Spent (min) 30 Comment 20 with patient, 10 charting coordination of care
== END 2023-06-04 11:28 | disposition home or self-care (01) ==
PROVIDERS: PCP Internal Medicine; Visit Provider Internal Medicine
DX: L68.0 Hirsutism (principal); Z80.3 Family history of malignant neoplasm of breast; F41.1 Generalized anxiety disorder; G47.9 Sleep disorder, unspecified; N89.8 Other specified noninflammatory disorders of vagina
CPT/HCPCS: 99214

== ENCOUNTER 2023-06-22 14:08 | Outpatient (AMB) | payer OTHER, SELFPAY ==
[2023-06-22 16:37] VITALS: BP 118/72; PULSE 118; TEMP 36.4; O2SAT 98; BMI 31.8
--- NOTE | 2023-06-22 16:37 | MHC.OFFWIV ---
Intake Vital Signs 06/22/23 16:37 Height 5 ft 5 in Weight 191 lb 2 oz BMI 31.8 BP 118/72 Blood Pressure Location Lt brachial Position Sitting Pulse 118 H Temp 97.5 F Temp Source Oral Pulse Oximetry (%) 98 Intake Visit Reasons: EST/back pain/arm pain (lobby masked) Intake Note: Patient is here with back pain, pulsating pain in right hand going up arm after shoveling yesterday, and right portions of back, starting from hip and going up. Patient Tobacco Use Status: Never used Tobacco Allergies No Known Allergies Allergy (Verified 06/22/23 16:40) Do you need a note to return to daycare/school/sports/work: Yes HPI HPI Comments History of Present Illness Details Patient presents to the walkin today for right hand, right shoulder and right upper back pain since yesterday Patient reports she shovelled snow yesterday for a couple hours, when she was done she noticed pain to her right palm, right shoulder and right upper back. She has taken tylenol and motrin with some improvement in her pain but once they wore off the pain returned. Right palm is tender to palpation. Right shoulder pain with ROM. 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 [facility] Medical History Vitamin D deficiency Family History Maternal Aunt Breast cancer Paternal Aunt Breast cancer Father Kidney stones High cholesterol Mother Hypothyroid Paternal Aunt Colon cancer Social History Housing: House Alcohol intake: never Patient Tobacco Use Status: Never used Tobacco e-Cigarette/Vaping Use: Never Used service: No Current occupational status: unemployed Current occupation: right handed Cognitive needs: No Hearing needs: No Vision needs: No Female Reproductive History Menstrual Age of Menarche: 12 Review of Systems Const All systems reviewed & are unremarkable except as noted in HPI and below Physical Exam Vital Signs: BMI result Body Mass Index 31.8 General: awake, alert, oriented. Answers questions appropriately. Fully engaged in examination. Skin: warm, dry, intact HEENT: Normocephalic. Hearing intact. Cardiac: External chest normal in appearance. Respiratory: No cough, audible wheezing or stridor. Abdomen: without gross distension. MS: No obvious swelling or deformities. Tenderness to right middle and lower trapezius. Tenderness to right palm, no bruising or swelling noted. Decreased ROM right shoulder, increased pain with overhead reach Neurological: Oriented to person, place, time and situation. Thought process intact. Psychiatric: Appropriate mood and affect. Good judgment and insight. Assessment & Plan Assessment & Plan (1) Right hand pain: Code(s): M79.641 - Pain in right hand (2) Right shoulder pain: Code(s): M25.511 - Pain in right shoulder (3) Trapezius muscle strain: Code(s): S46.819A - Strain of other muscles, fascia and tendons at shoulder and upper arm level, unspecified arm, initial encounter Plan Xray right hand ordered Xray right shoulder ordered Xray dept is closed for the day, patient will return tomorrow to complete imaging. Diclofenc 25mg po BID, do not take any other NSAIDs while taking this medication Methorabamol 500mg po BID as needed for muscle spasm/trapezius muscle strain. patient advised on cautions for use. Tylenol as needed School note provided for tomorrow Follow up with pcp or return to walkin for any new or worsening symptoms. May benefit from PT if symptoms persist. Orders: Orders XR hand RT min 3V Today M79.641 - Pain in right hand XR shoulder RT min 2V Today M25.511 - Pain in right shoulder Medications: New diclofenac potassium 25 mg PO BID 20 caps 0RF methocarbamol no driving while taking this medication may cause drowsiness 500 mg PO BID PRN 20 tabs 0RF muscle spasm Coding Level of Care Code Est Pt Level 4 (30824) Diagnoses Right hand pain M79.641 Right shoulder pain M25.511 Trapezius muscle strain S46.819A
== END 2023-06-22 17:01 | disposition home or self-care (01) ==
PROVIDERS: PCP Internal Medicine; Visit Provider Registered Nurse Emergency
DX: M79.641 Pain in right hand (principal); M25.511 Pain in right shoulder; S46.819A Strain of other muscles, fascia and tendons at shoulder and upper arm level, unspecified arm, initial encounter
CPT/HCPCS: 99214

== ENCOUNTER 2023-06-24 12:19 | Outpatient (REF) | payer OTHER, SELFPAY ==
--- NOTE | ~2023-06-24 | XR_ITS ---
EXAMINATION: XR SHOULDER, RIGHT CLINICAL INFORMATION: Right shoulder pain. COMPARISON: Right shoulder radiographs dated 11/14/2020. TECHNIQUE: AP external rotation, Grashey, scapular Y, and axillary views of the right shoulder. FINDINGS: The bones and soft tissues are normal. No fracture. Glenohumeral and acromioclavicular alignment is anatomic with normal joint space. No abnormal soft tissue calcifications. XR/XR shoulder RT min 2V IMPRESSION: Unremarkable examination.
--- NOTE | ~2023-06-24 | XR_ITS ---
EXAMINATION: XR HAND, RIGHT CLINICAL INFORMATION: Right hand pain. COMPARISON: None available. TECHNIQUE: PA, lateral, and oblique views of the right hand. FINDINGS: No fracture or dislocation. Normal carpal alignment. No significant joint space narrowing or marginal osteophytes. No osseous erosion. No periarticular osteopenia. No abnormal soft tissue calcification. XR/XR hand RT min 3V IMPRESSION: Unremarkable examination.
== END 2023-06-24 12:20 | disposition home or self-care (01) ==
LOC: HO.HMGCX 12:19
PROVIDERS: PCP Internal Medicine; Visit Provider Registered Nurse Emergency
DX: M79.641 Pain in right hand (principal); M25.511 Pain in right shoulder
CPT/HCPCS: 73030; 73130

== ENCOUNTER 2023-08-25 13:50 | Outpatient (AMB) | payer OTHER, SELFPAY ==
--- NOTE | 2023-08-25 14:02 | A.OFFPC_ITS ---
Vital Signs 3 08/25/23 14:03 Height 5 ft 5 in Weight 181 lb 2 oz BMI 30.1 BP 118/70 Blood Pressure Location Lt brachial Position Sitting Pulse 92 Pulse Source Pulse Oximeter Pulse Oximetry (%) 98 Oxygen Delivery Method Room Air Intake Visit Reasons: Big toes still have fungus/keep falling off Allergies No Known Allergies Allergy (Verified 08/25/23 14:03) Medication List - Last Reconciled 08/25/23 by Luann Lopez MD cholecalciferol (vitamin D3) 25 mcg PO DAILY 90 days dextroamphetamine-amphetamine 15 mg ER (Adderall XR) 15 mg PO DAILY lorazepam 1 mg PO BEDTIME PRN pantoprazole 20 mg PO DAILY tretinoin 0.025% (Retin-A) appl topical Tobacco use date assessed: 08/25/23 Dental Screening Dental Screen Date: 08/25/23 Did you have a dental visit in the last 12 months?: Yes Did you have a dental problem in the last 6 months where you did not have access to dental care?: No Was dental information given to patient?: Patient has dentist HPI Big toes still have fungus/keep falling off 2 HPI0 Details Patient is 28-year-old female came in today for her regular follow-up appointment Patient have onychomycosis, she was started on terbinafine last year which she took for 3 months and then stopped Her need toenail fungus has come back, we did the culture which showed fungus I have sent terbinafine for 3 more months, she will have baseline labs today, patient was instructed to return in 3 months so I can re-evaluate Anxiety: She is also taking lorazepam 1 mg at night which is helping patient. Refill sent for next 3 months Follow-up 3 months [facility] [place] Medical History Vitamin D deficiency Family History Maternal Aunt Breast cancer Paternal Aunt Breast cancer Father Kidney stones High cholesterol Mother Hypothyroid Paternal Aunt Colon cancer Social History Housing: House Alcohol intake: never Patient Tobacco Use Status: Never used Tobacco e-Cigarette/Vaping Use: Never Used service: No Current occupational status: unemployed Current occupation: right handed Cognitive needs: No Hearing needs: No Vision needs: No Female Reproductive History Menstrual Age of Menarche: 12 Questionnaire PHQ-9 Over the last 2 weeks, how often have you been bothered by any of the following problems? 1. Little interest or pleasure in doing things: several days 2. Feeling down, depressed, or hopeless: several days 3. Trouble falling or staying asleep, or sleeping too much: more than half the days 4. Feeling tired or having little energy: several days 5. Poor appetite or overeating: several days 6. Feeling bad about yourself - or that you are a failure or have let yourself or your family down: several days 7. Trouble concentrating on things, such as reading the newspaper or watching television: several days 8. Moving or speaking so slowly that other people could have noticed. Or the opposite - being so fidgety or restless that you have been moving around a lot more than usual: not at all 9. Thoughts that you would be better off or of hurting yourself in some way: not at all Total score: 8 Depression Screening Interpretation: Negative Depression Screening Done: Yes 12688 - PHQ-9 Billing: Yes Source: Developed by Drs. Adam Mir, Bing Oviedo, Fortino Dodson and colleagues, with an educational spike from [employer]. Thrive Questionnaire Date Thrive assessed: 08/25/23 I am a: Patient What is your living situation today?: I have a steady place to live Within the past 12 months, did the food you bought not last and you didn't have the money to get more?: Never true Within the past 12 months, did you worry whether your food would run out before you got money to buy more?: Never true Do you have trouble paying for medicines?: No Do you have trouble getting transportation to medical appointments?: No Do you have trouble paying your heating and electricity bill?: No Do you have trouble taking care of your child, family member or friend?: No Do you have trouble with day-to-day activities such as bathing, preparing meals, shopping, managing finances, etc.?: No Are you currently unemployed and looking for a job?: No Are you interested in more education?: No Please select the resources that you would like help with: None Currently or been in a relationship where the following occur: no concerns reported THRIVE Score: 0 AUDIT C Alcohol Use Questionnaire (AUDIT-C) 1. How often do you have a drink containing alcohol?: Never 3. How often do you have six or more drinks on one occasion?: Never Total Score: 0 Score Reviewed/Action Taken: Yes AGUS-7 AMB Questionnaire AGUS-7 Date AGUS - 7 assessed: 08/25/23 Feeling nervous, anxious, or on edge: 1 = Several days Not being able to stop or control worryin = Several days Worrying too much about different things: 1 = Several days Trouble relaxin = Several days Being so restless that it is hard to sit still: 1 = Several days Becoming easily annoyed or irritable: 0 = Not at all Feeling afraid as if something awful might happen: 0 = Not at all Total AGUS-7 score (0-4 normal; 5-9 mild; 10-14 moderate; 15-21 severe): 5 Source: Developed by Drs. Adam Mir, Bing Oviedo, Fortino Dodson and colleagues, with an educational spike from [employer]. AGUS-7 Assessment Billing AGUS-7 Assessment Tool: AGUS-7 Assessment 08702 Review of Systems Const Denies chills and Denies fever(s) ENT Denies epistaxis and Denies nasal discharge Card Denies chest pain Resp Denies chest congestion, Denies cough and Denies hemoptysis GI Denies diarrhea and Denies nausea Skin/Breast Denies rash Neuro Reports no additional complaints Psych Reports no additional complaints Endo Reports no additional complaints Physical exam (Primary Care) Vital Signs: Last Vital Signs Pulse 92 08/25/23 14:03 BP 118/70 08/25/23 14:03 Pulse Ox 98 08/25/23 14:03 Oxygen Delivery Method Room Air 08/25/23 14:03 BMI result Body Mass Index 30.1 Tobacco/Smoking Status: Tobacco use Status Tobacco use date assessed 08/25/23 08/25/23 14:08 Patient Tobacco Use Status Never used Tobacco 08/25/23 14:08 e-Cigarette/Vaping Use Never Used 08/25/23 14:08 PHQ-9: PHQ-9 Score PHQ-9: Total score 8 08/25/23 14:08 Depression Screening Interpretation: Negative Thrive Assessment: Date of Thrive Assessment Date Thrive assessed 08/25/23 08/25/23 14:08 Currently or been in a relationship where the following occur: no concerns reported Const General: cooperative, comfortable and no acute distress Orientation/consciousness: patient oriented x3 HENMT Head: Yes normocephalic Eyes General: appearance normal, both eyes and all related structures Neck Neck: Yes supple Resp Effort & Inspection: normal respiratory effort, no cough and no stridor Cardio Rhythm: regular rhythm Heart sounds: S1 normal heart sound present and S2 normal heart sound present Skin General skin exam: turgor normal Neuro General: patient oriented x3, tone normal and moves all extremities Extrem Right lower extremity: no edema Left lower extremity: no edema Ankle/foot/toe images: 2 1. Lateral aspect of right toenail discolored, medial aspect of left toenail discolored Assessment and Plan Assessment & Plan (1) Onychomycosis: Code(s): B35.1 - Tinea unguium (2) Anxiety, generalized: Code(s): F41.1 - Generalized anxiety disorder Plan Patient is 28-year-old female came in today for her regular follow-up appointment Patient have onychomycosis, she was started on terbinafine last year which she took for 3 months and then stopped Her need toenail fungus has come back, we did the culture which showed fungus I have sent terbinafine for 3 more months, she will have baseline labs today, patient was instructed to return in 3 months so I can re-evaluate Anxiety: She is also taking lorazepam 1 mg at night which is helping patient. Refill sent for next 3 months Follow-up 3 months Orders: Orders 2 Comprehensive Met. Panel Today B35.1 - Tinea unguium Medications: Refilled 2 lorazepam 1 mg PO BEDTIME PRN 90 tabs 0RF anxiety terbinafine HCl 250 mg PO DAILY 90 tabs 0RF Coding Level of Care Code Est Pt Level 3 (32089) Diagnoses Onychomycosis B35.1 Anxiety, generalized F41.1 Additional Codes AGUS-7 Assessment Billing - AGUS-7 Assessment Tool: AGUS-7 Assessment 17037 ([id number])
[2023-08-25 14:03] VITALS: BP 118/70; PULSE 92; O2SAT 98; BMI 30.1
== END 2023-08-25 14:26 | disposition home or self-care (01) ==
PROVIDERS: PCP Internal Medicine; Visit Provider Internal Medicine
DX: B35.1 Tinea unguium (principal); F41.1 Generalized anxiety disorder
CPT/HCPCS: 99213

== ENCOUNTER 2023-08-25 14:27 | Outpatient (REF) | payer OTHER, SELFPAY ==
[2023-08-25 16:50] LABS: Alanine Aminotransferase 11 U/L (0-31); Alkaline Phosphatase 61 U/L (39-117); Anion Gap 12 (12-20); Aspartate Amino Transferase 17 U/L (5-31); Bilirubin Total 0.5 mg/dL (0.0-1.0); Blood Urea Nitrogen 6 mg/dL (9-16); Calcium 9.7 mg/dL (8.4-10.2); Carbon Dioxide 27 mmol/L (22-29); Chloride 104 mmol/L (96-108); Estimated Glomerular Filt Rate > 60; Glucose Random 103 mg/dL (60-115); Potassium 4.1 mmol/L (3.3-5.1); Sodium 139 mmol/L (135-145); Total Protein 8.8 g/dL (6.5-8.0)
== END 2023-08-25 14:28 | disposition home or self-care (01) ==
LOC: HO.HMGCLDS 14:27
PROVIDERS: PCP Internal Medicine; Visit Provider Internal Medicine
DX: B35.1 Tinea unguium (principal)
CPT/HCPCS: 36415; 80053

== ENCOUNTER 2023-12-01 15:14 | Outpatient (AMB) | payer OTHER, SELFPAY ==
[2023-12-01 15:18] VITALS: BP 118/74; PULSE 107; O2SAT 98; BMI 29.0
--- NOTE | 2023-12-01 15:18 | A.OFFPC_ITS ---
Vital Signs 3 12/01/23 15:18 Height 5 ft 5 in Weight 174 lb 6 oz BMI 29.0 BP 118/74 Blood Pressure Location Lt brachial Position Sitting Pulse 107 H Pulse Source Pulse Oximeter Pulse Oximetry (%) 98 Oxygen Delivery Method Room Air Intake Visit Reasons: 2.5 M F/U Allergies No Known Allergies Allergy (Verified 12/01/23 15:19) Medication List - Last Reconciled 12/01/23 by Luann Lopez MD cholecalciferol (vitamin D3) 25 mcg PO DAILY 90 days dextroamphetamine-amphetamine 15 mg ER (Adderall XR) 15 mg PO DAILY lorazepam 1 mg PO BEDTIME PRN pantoprazole 20 mg PO DAILY terbinafine HCl 250 mg PO DAILY tretinoin 0.025% (Retin-A) appl topical Tobacco use date assessed: 12/01/23 Dental Screening Dental Screen Date: 12/01/23 Did you have a dental visit in the last 12 months?: Yes Did you have a dental problem in the last 6 months where you did not have access to dental care?: No Was dental information given to patient?: Patient has dentist HPI 2.5 M F/U 2 HPI0 Details Patient is 28-year-old female came in today for her regular follow-up appointment Patient have onychomycosis, she was started on terbinafine last year which she took for 3 months and then stopped Her need toenail fungus has come back, we did the culture which showed fungus She was restarted with terbinafine treatment, she has taken it for 2 and months but I do not see any improvement I have sent refill she may continue that for now, and also referral placed to be evaluated by Dermatology Anxiety: She is also taking lorazepam 1 mg at night which is helping patient. 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 a student and she study by looking down for extended periods of time Follow-up 3 months [facility] Medical History Vitamin D deficiency Family History Maternal Aunt Breast cancer Paternal Aunt Breast cancer Father Kidney stones High cholesterol Mother Hypothyroid Paternal Aunt Colon cancer Social History Housing: House Alcohol intake: never Patient Tobacco Use Status: Never used Tobacco e-Cigarette/Vaping Use: Never Used service: No Current occupational status: unemployed Current occupation: right handed Cognitive needs: No Hearing needs: No Vision needs: No Female Reproductive History Menstrual Age of Menarche: 12 Questionnaire Thrive Questionnaire Date Thrive assessed: 08/25/23 AGUS-7 AMB Questionnaire AGUS-7 Date AGUS - 7 assessed: 08/25/23 Source: Developed by Drs. Adam Mir, Bing Oviedo, Fortino Dodson and colleagues, with an educational spike from [employer]. Review of Systems Const Denies chills and Denies fever(s) ENT Denies epistaxis and Denies nasal discharge Card Denies chest pain Resp Denies chest congestion, Denies cough and Denies hemoptysis GI Denies diarrhea and Denies nausea Skin/Breast Denies rash Neuro Reports no additional complaints Psych Reports no additional complaints Endo Reports no additional complaints Physical exam (Primary Care) Vital Signs: Last Vital Signs Pulse 107 H 12/01/23 15:18 BP 118/74 12/01/23 15:18 Pulse Ox 98 12/01/23 15:18 Oxygen Delivery Method Room Air 12/01/23 15:18 BMI result Body Mass Index 29.0 Tobacco/Smoking Status: Tobacco use Status Tobacco use date assessed 12/01/23 12/01/23 15:19 Patient Tobacco Use Status Never used Tobacco 12/01/23 15:19 e-Cigarette/Vaping Use Never Used 12/01/23 15:19 Thrive Assessment: Date of Thrive Assessment Date Thrive assessed 08/25/23 12/01/23 15:19 Const General: cooperative, comfortable and no acute distress Orientation/consciousness: patient oriented x3 HENMT Head: Yes normocephalic Eyes General: appearance normal, both eyes and all related structures Neck Neck: Yes supple Resp Effort & Inspection: normal respiratory effort, no cough and no stridor Cardio Rhythm: regular rhythm Heart sounds: S1 normal heart sound present and S2 normal heart sound present Back/Spine/Pelvis Back/spine/pelvis image: 2 1. Site of back pain Skin General skin exam: turgor normal Neuro General: patient oriented x3, tone normal and moves all extremities Extrem Right lower extremity: no edema Left lower extremity: no edema Ankle/foot/toe images: 2 1. Discoloration of nail 2. Discoloration of nail Assessment and Plan Assessment & Plan (1) Onychomycosis: Code(s): B35.1 - Tinea unguium (2) Anxiety, generalized: Code(s): F41.1 - Generalized anxiety disorder (3) Trapezius muscle strain: Code(s): S46.819A - Strain of other muscles, fascia and tendons at shoulder and upper arm level, unspecified arm, initial encounter Qualifiers: Encounter type: sequela Laterality: unspecified laterality Qualified Code(s): S46.819S - Strain of other muscles, fascia and tendons at shoulder and upper arm level, unspecified arm, sequela Plan Patient is 28-year-old female came in today for her regular follow-up appointment Patient have onychomycosis, she was started on terbinafine last year which she took for 3 months and then stopped Her need toenail fungus has come back, we did the culture which showed fungus She was restarted with terbinafine treatment, she has taken it for 2 and months but I do not see any improvement I have sent refill she may continue that for now, and also referral placed to be evaluated by Dermatology Anxiety: She is also taking lorazepam 1 mg at night which is helping patient. 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
== END 2023-12-01 15:39 | disposition home or self-care (01) ==
PROVIDERS: PCP Internal Medicine; Visit Provider Internal Medicine
DX: B35.1 Tinea unguium (principal); F41.1 Generalized anxiety disorder; S46.819S Strain of other muscles, fascia and tendons at shoulder and upper arm level, unspecified arm, sequela
CPT/HCPCS: 99213; G2211

== ENCOUNTER 2024-05-03 14:00 | Outpatient (AMB) | payer OTHER, SELFPAY ==
[2024-05-03 14:08] VITALS: BP 120/74; PULSE 105; O2SAT 100; BMI 27.3
--- NOTE | 2024-05-03 14:08 | A.OFFPC_ITS ---
Vital Signs 05/03/24 14:08 Height 5 ft 5 in Weight 164 lb 4 oz BMI 27.3 BP 120/74 Blood Pressure Location Rt brachial Position Sitting Pulse 105 H Pulse Source Pulse Oximeter Pulse Oximetry (%) 100 Oxygen Delivery Method Room Air Intake Visit Reasons: Annual PE Allergies No Known Allergies Allergy (Verified 05/03/24 14:08) Medication List - Last Reconciled 05/03/24 by Luann Lopez MD cholecalciferol (vitamin D3) 25 mcg PO DAILY 90 days dextroamphetamine-amphetamine 15 mg ER (Adderall XR) 15 mg PO DAILY lorazepam 1 mg PO BEDTIME PRN pantoprazole 20 mg PO DAILY terbinafine HCl 250 mg PO DAILY tretinoin 0.025% (Retin-A) appl topical Tobacco use date assessed: 05/03/24 Dental Screening Dental Screen Date: 05/03/24 Did you have a dental visit in the last 12 months?: Yes Did you have a dental problem in the last 6 months where you did not have access to dental care?: No Was dental information given to patient?: Patient has dentist HPI Annual PE HPI Details The patient is a 28-year-old female presenting with a primary concern of anxiety management during a routine physical exam. She reports experiencing anxiety that fluctuates from mild to severe, with some weeks being symptom-free and others with significant anxiety. The anxiety has been ongoing, and she has been using lorazepam at bedtime to aid with sleep, which she reports as helpful, In the past, she tried duloxetine, which was ineffective. A trial of a low dose of fluoxetine showed minor improvement without side effects, and she is willing to resume it at an increased dosage. Additionally, the patient mentions a dermatological condition affecting her toes, for which she is scheduled to see a medical donation professional after this visit. She reports a significant weight loss that was intentional and has resulted in a reduced appetite. She denies constipation, diarrhea, nausea, vomiting, or swelling of the ankles. Previous laboratory tests were conducted last May, and repeat labs are desired. - Laboratory tests ordered to be done fa sting for monitoring. - Encouraged dietary adjustments alongsi de weight management goals. - Anxiety: Initiate fluoxetine at 10 mg daily for one week, then increase to 20 mg. Continue lorazepam at bedtime for sleep as needed to avoid drowsiness during the day. Follow-up in three weeks to assess medication efficacy and adjust dosage if necessary. - Dermatological assessment for toe issu es scheduled with a medical donation professional immediately after this visit. - Repeat laboratory evaluations, fasting , for general health screening and monitoring. - Continue intentional weight management and monitor dietary intake to maintain appropriate nutrition levels. . [facility] Medical History Vitamin D deficiency Family History Maternal Aunt Breast cancer Paternal Aunt Breast cancer Father Kidney stones High cholesterol Mother Hypothyroid Paternal Aunt Colon cancer Social History Housing: House Alcohol intake: never Patient Tobacco Use Status: Never used Tobacco e-Cigarette/Vaping Use: Never Used service: No Current occupational status: unemployed Current occupation: right handed Cognitive needs: No Hearing needs: No Vision needs: No Female Reproductive History Menstrual Age of Menarche: 12 Questionnaire PHQ-9 Over the last 2 weeks, how often have you been bothered by any of the following problems? 1. Little interest or pleasure in doing things: several days 2. Feeling down, depressed, or hopeless: several days 3. Trouble falling or staying asleep, or sleeping too much: more than half the days 4. Feeling tired or having little energy: several days 5. Poor appetite or overeating: several days 6. Feeling bad about yourself - or that you are a failure or have let yourself or your family down: not at all 7. Trouble concentrating on things, such as reading the newspaper or watching television: several days 8. Moving or speaking so slowly that other people could have noticed. Or the opposite - being so fidgety or restless that you have been moving around a lot more than usual: several days 9. Thoughts that you would be better off or of hurting yourself in some way: not at all Total score: 8 Source: Developed by Drs. Adam Mir, Bing Oviedo, Fortino Dodson and colleagues, with an educational spike from [employer]. Thrive Questionnaire Date Thrive assessed: 04/26/24 I am a: Patient What is your living situation today?: I have a steady place to live Within the past 12 months, did the food you bought not last and you didn't have the money to get more?: Never true Within the past 12 months, did you worry whether your food would run out before you got money to buy more?: Never true Do you have trouble paying for medicines?: No Do you have trouble getting transportation to medical appointments?: No Do you have trouble paying your heating and electricity bill?: No Do you have trouble taking care of your child, family member or friend?: No Do you have trouble with day-to-day activities such as bathing, preparing meals, shopping, managing finances, etc.?: No Are you currently unemployed and looking for a job?: No Are you interested in more education?: No Please select the resources that you would like help with: None Currently or been in a relationship where the following occur: I choose not to answer THRIVE Score: 0 AUDIT C Alcohol Use Questionnaire (AUDIT-C) 1. How often do you have a drink containing alcohol?: Never 3. How often do you have six or more drinks on one occasion?: Never Total Score: 0 Score Reviewed/Action Taken: Yes AGUS-7 AMB Questionnaire AGUS-7 Date AGUS - 7 assessed: 08/25/23 Feeling nervous, anxious, or on edge: 2 = More than half the days Not being able to stop or control worryin = More than half the days Worrying too much about different things: 2 = More than half the days Trouble relaxin = More than half the days Being so restless that it is hard to sit still: 2 = More than half the days Becoming easily annoyed or irritable: 1 = Several days Feeling afraid as if something awful might happen: 1 = Several days Total AGUS-7 score (0-4 normal; 5-9 mild; 10-14 moderate; 15-21 severe): 12 Source: Developed by Drs. Adam Mir, Bing Oviedo, Fortino Dodson and colleagues, with an educational spike from [employer]. Review of Systems Const Denies chills, Denies fever(s) and Denies headache(s) Eyes Denies blurry vision ENT Denies headache(s), Denies nasal discharge, Denies nasal obstruction, Denies odynophagia and Denies sinus pain Card Denies chest pain at rest and Denies chest pain with activity Resp Denies cough and Denies hemoptysis GI Denies diarrhea, Denies odynophagia, Denies vomiting and Denies hematemesis Reports as per HPI Musc Denies abnormal gait Skin/Breast Reports as per HPI Neuro Denies Neuro-related abnormal movements, Denies Abnormal speech present, Denies abnormal gait, Denies headache(s) and Denies Sensory deficit (Neuro) Psych Denies mood swings and Denies paranoia Endo Reports as per HPI Dar/Lymph Reports as per HPI Aller/Immun Reports as per HPI Physical exam (Primary Care) Vital Signs: Last Vital Signs Pulse 105 H 05/03/24 14:08 BP 120/74 05/03/24 14:08 Pulse Ox 100 05/03/24 14:08 Oxygen Delivery Method Room Air 05/03/24 14:08 BMI result Body Mass Index 27.3 Tobacco/Smoking Status: Tobacco use Status Tobacco use date assessed 05/03/24 05/03/24 14:16 Patient Tobacco Use Status Never used Tobacco 05/03/24 14:16 e-Cigarette/Vaping Use Never Used 05/03/24 14:16 PHQ-9: PHQ-9 Score PHQ-9: Total score 8 05/03/24 14:59 Thrive Assessment: Date of Thrive Assessment Date Thrive assessed 04/26/24 05/03/24 14:16 Currently or been in a relationship where the following occur: I choose not to answer Const General: cooperative, comfortable and no acute distress Orientation/consciousness: patient oriented x3 HENMT Head: Yes normocephalic and Yes atraumatic Eyes General: appearance normal, both eyes and all related structures Pupils: Equal, round and reactive pupils present EOM: EOMs intact bilaterally Neck Neck: Yes supple and No lymphadenopathy Thyroid: Thyroid normal Lymphatic: no lymphadenopathy noted Resp Effort & Inspection: normal respiratory effort and able to speak in complete sentences Auscultation: clear to auscultation bilaterally Cardio Heart sounds: S1 normal heart sound present and S2 normal heart sound present GI Palpation (GI): Soft to palpation and nontender Auscultation: normal bowel sounds General: Yes no CVA tenderness Back/Spine/Pelvis Back: no CVA tenderness Skin General skin exam: elasticity normal and turgor normal Neuro General: patient oriented x3 and gait normal Cranial nerves: Yes Equal, round and reactive pupils present Speech: No Abnormal speech present Sensory Exam: No Sensory deficit (Neuro) Coordination: tandem gait normal and Romberg test negative Extrem General: Yes normal exam except as noted and No edema Coding Level of Care Code Est Pt Level 3 (12312) Est Pt Prev Care 18-39y(91700) Diagnoses Encounter for general adult medical examination with abnormal findings Z00.01 Generalized anxiety disorder F41.1 Anxiety disorder type: generalized anxiety disorder Difficulty sleeping G47.9 Vitamin D deficiency E55.9 Onychomycosis B35.1 Assessment & Plan Assessment & Plan (1) Encounter for general adult medical examination with abnormal findings: Code(s): Z00.01 - Encounter for general adult medical examination with abnormal findings Category: Medical (2) Anxiety disorder: Code(s): F41.9 - Anxiety disorder, unspecified Category: Medical Qualifiers: Anxiety disorder type: generalized anxiety disorder Qualified Code(s): F41.1 - Generalized anxiety disorder (3) Difficulty sleeping: Code(s): G47.9 - Sleep disorder, unspecified Category: Medical (4) Vitamin D deficiency: Code(s): E55.9 - Vitamin D deficiency, unspecified Category: Medical (5) Onychomycosis: Code(s): B35.1 - Tinea unguium Category: Medical Plan The patient is a 28-year-old female presenting with a primary concern of anxiety management during a routine physical exam. She reports experiencing anxiety that fluctuates from mild to severe, with some weeks being symptom-free and others with significant anxiety. The anxiety has been ongoing, and she has been using lorazepam at bedtime to aid with sleep, which she reports as helpful, In the past, she tried duloxetine, which was ineffective. A trial of a low dose of fluoxetine showed minor improvement without side effects, and she is willing to resume it at an increased dosage. Additionally, the patient mentions a dermatological condition affecting her toes, for which she is scheduled to see a medical donation professional after this visit. She reports a significant weight loss that was intentional and has resulted in a reduced appetite. She denies constipation, diarrhea, nausea, vomiting, or swelling of the ankles. Previous laboratory tests were conducted last May, and repeat labs are desired. - Laboratory tests ordered to be done fasting for monitoring. - Encouraged dietary adjustments alongside weight management goals. - Anxiety: Initiate fluoxetine at 10 mg daily for one week, then increase to 20 mg. Continue lorazepam at bedtime for sleep as needed to avoid drowsiness during the day. Follow-up in three weeks to assess medication efficacy and adjust dosage if necessary. - Dermatological assessment for toe issues scheduled with a medical donation professional immediately after this visit. - Repeat laboratory evaluations, fasting, for general health screening and monitoring. - Continue intentional weight management and monitor dietary intake to maintain appropriate nutrition levels. . Orders: Orders Complete Blood Count Auto Diff Today B35.1 - Tinea unguium, E55.9 - Vitamin D deficiency, unspecified, F41.9 - Anxiety disorder, unspecified, G47.9 - Sleep disorder, unspecified, Z00.01 - Encounter for general adult medical examination with abnormal findings Lipid Panel Today B35.1 - Tinea unguium, E55.9 - Vitamin D deficiency, unspecified, F41.9 - Anxiety disorder, unspecified, G47.9 - Sleep disorder, unspecified, Z00.01 - Encounter for general adult medical examination with abnormal findings Comprehensive [place]. Panel Fast Today B35.1 - Tinea unguium, E55.9 - Vitamin D deficiency, unspecified, F41.9 - Anxiety disorder, unspecified, G47.9 - Sleep disorder, unspecified, Z00.01 - Encounter for general adult medical examination with abnormal findings TSH reflex Free T4 Today B35.1 - Tinea unguium, E55.9 - Vitamin D deficiency, unspecified, F41.9 - Anxiety disorder, unspecified, G47.9 - Sleep disorder, unspecified, Z00.01 - Encounter for general adult medical examination with abnormal findings Vitamin D 25-OH (D2 and D3) Today B35.1 - Tinea unguium, E55.9 - Vitamin D deficiency, unspecified, F41.9 - Anxiety disorder, unspecified, G47.9 - Sleep disorder, unspecified, Z00.01 - Encounter for general adult medical examination with abnormal findings Medications: New fluoxetine 10 mg PO DAILY 30 caps 0RF Refilled lorazepam 1 mg PO BEDTIME PRN 90 tabs 0RF anxiety
== END 2024-05-03 14:49 | disposition home or self-care (01) ==
PROVIDERS: PCP Internal Medicine; Visit Provider Internal Medicine
DX: Z00.00 Encounter for general adult medical examination without abnormal findings (principal); G47.9 Sleep disorder, unspecified; F41.1 Generalized anxiety disorder; E55.9 Vitamin D deficiency, unspecified; B35.1 Tinea unguium

== ENCOUNTER → 2024-05-03 14:00 | Outpatient (BNVA) | payer OTHER, SELFPAY | PROVIDERS: PCP Internal Medicine; Visit Provider Internal Medicine | DX: Z00.01 Encounter for general adult medical examination with abnormal findings (principal); F41.1 Generalized anxiety disorder; G47.9 Sleep disorder, unspecified; E55.9 Vitamin D deficiency, unspecified; B35.1 Tinea unguium | CPT/HCPCS: 96127; 99212; 99395 ==

== ENCOUNTER 2024-11-29 17:38 | Emergency (ER) | payer OTHER, SELFPAY ==
--- NOTE | ~2024-11-29 | XR_ITS ---
CLINICAL HISTORY: pain Two views of the chest. COMPARISON: None FINDINGS: Normal heart and mediastinal contours. No consolidation. No pleural effusion or pneumothorax. No acute fracture. IMPRESSION: 1. No consolidation. This document has been electronically signed by: Devon Márquez MD on 11/29/2024 19:02:04
--- NOTE | 2024-11-29 17:40 | ECG_ITS ---
Test Reason : CHEST PAIN Blood Pressure : */* mmHG Vent. Rate : 96 BPM Atrial Rate : 96 BPM P-R Int : 132 ms QRS Dur : 72 ms QT Int : 346 ms P-R-T Axes : 73 93 61 degrees QTcB Int : 437 ms Normal sinus rhythm Rightward axis Borderline ECG No previous ECGs available Referred By: Generic ED Physician Electronically Signed By: Narayan Painting
[2024-11-29 18:07] VITALS: BP 138/87; PULSE 99; RESP 16; TEMP 36.4; O2SAT 100; BMI 26.6
--- NOTE | 2024-11-29 18:11 | ED.GENADULT ---
HPI - General Adult General Chief complaint: Chest Pain Stated complaint: Chest pain/Difficulty breathing Related Data Home Medications ?Medication ?Instructions ?Recorded ?Confirmed dextroamphetamine-amphetamine ER 15 mg PO DAILY 10/26/20 12/01/23 15 mg 24hr capsule,extend release (Adderall XR) tretinoin 0.025 % topical cream appl topical 05/18/23 05/03/24 (Retin-A) Previous Rx's ?Medication ?Instructions ?Recorded terbinafine HCl 250 mg tablet 250 mg PO DAILY #90 tabs 08/25/23 pantoprazole 20 mg tablet,delayed 20 mg PO DAILY #90 tabs 06/02/24 release fluoxetine 10 mg capsule 10 mg PO DAILY #90 caps 08/17/24 lorazepam 1 mg tablet 1 mg PO BEDTIME PRN anxiety #90 11/23/24 tabs cholecalciferol (vitamin D3) 25 25 mcg PO DAILY 90 days #90 caps 11/24/24 mcg (1,000 unit) capsule Allergies Allergy/AdvReac Type Severity Reaction Status Date / Time No Known Allergies Allergy Verified 11/29/24 18:13 [facility] Past Medical History Medical History Vitamin D deficiency Family History Family History Maternal Aunt Breast cancer Paternal Aunt Breast cancer Father Kidney stones High cholesterol Mother Hypothyroid Paternal Aunt Colon cancer Social History Social History Housing: House Alcohol intake: never Patient Tobacco Use Status: Never used Tobacco e-Cigarette/Vaping Use: Never Used Advance Directives: No Advance Directives Information Provided: No Do you have a plan to hurt others: No Plan service: No Current occupational status: unemployed Current occupation: right handed Cognitive needs: No Hearing needs: No Vision needs: No Physical Exam ED Vital Signs: BMI result Body Mass Index 26.6 Medical Decision Making Medical Decision Making MDM Narrative: RME, this is a rapid medical exam performed by Yash Vasques please refer to primary provider for complete H&P- 29-year-old female presents for evaluation of chest pain and shortness of breath. EKG performed at arrival. Plan for labs, chest x-ray Lab Data 11/29/24 18:20 11/29/24 18:20 Labs: Lab Results 11/29/24 Range/Units 18:20 WBC 8.7 (4.8-10.8) X10*3/uL RBC 4.54 (4.20-5.50) X10*6/uL Hgb 13.6 (12.0-16.0) g/dl Hct 39.2 (37.0-47.0) % MCV 86.3 (80.0-98.0) fL MCH 30.0 (27.0-33.0) pg MCHC 34.7 (31.0-35.0) g/dl RDW 12.2 (11.0-16.0) % Plt Count 168 D (160-400) X10*3/uL MPV 11.9 (9.4-12.3) fL Immature Gran % (Auto) 0.2 (0.0-0.4) % Neut % (Auto) 64.2 (45-73) % Lymph % (Auto) 28.7 (20-40) % [place] % (Auto) 5.6 (2-11) % Eos % (Auto) 0.8 (0-4) % Baso % (Auto) 0.5 (0-2) % Lymph # (Auto) 2.5 (1.2-4.9) X10*3/uL [place] # (Auto) 0.5 (0.1-1.2) X10*3/uL Eos # (Auto) 0.1 (0.0-0.4) X10*3/uL Baso # (Auto) 0.0 (0.0-0.2) X10*3/uL Abs Immat Gran (auto) 0.02 (0.00-0.03) X10*3/uL Absolute Neuts (auto) 5.6 (2.0-8.3) x10*3/uL Absolute Nucleated RBC 0.000 (0.0-0.012) X10*3/uL Nucleated RBC % (auto) 0.0 (0.0-0.2) /100WBC Smear Tech's Comments VERIFIED Sodium 139 (135-145) mmol/L Potassium 4.7 (3.3-5.1) mmol/L Chloride 108 (96-108) mmol/L Carbon Dioxide 23 (22-29) mmol/L Anion Gap 13 (12-20) BUN 11 (9-16) mg/dL Creatinine 0.97 (0.5-1.4) mg/dL Estim Creat Clear Calc 87.0 Estimated GFR > 60 Random Glucose 96 (60-115) mg/dL Calcium 9.4 (8.4-10.2) mg/dL Total Bilirubin 0.3 (0.0-1.0) mg/dL AST 24 (5-31) U/L ALT 14 (0-31) U/L Alkaline Phosphatase 49 (39-117) U/L Troponin I High Sens < 2.7 (<3.5-17.0) ng/L Total Protein 7.9 (6.5-8.0) g/dL Albumin 4.8 (3.5-5.0) g/dL Lipase 12 (8-78) U/L Discharge Plan Discharge Clinical Impression: Chest pain Patient Disposition: Left Without Being Seen Interventions: LWBS Worksheet Last Done: 11/29/24 22:17 Discharge Date/Time: 11/29/24 22:17
[2024-11-29 18:32] LABS: Eosinophils Absolute Auto 0.1 X10*3/uL (0.0-0.4); Eosinophils Percent Auto 0.8 % (0-4); Imm Gran Abs Auto 0.02 X10*3/uL (0.00-0.03); Imm Gran Pct Auto 0.2 % (0.0-0.4); MANUAL DIFF FLAG SCAN; PLT CLUMP 1; SCAN SMEAR FLAG 1
[2024-11-29 18:34] LABS: Basophils Percent Auto 0.5 % (0-2); Hematocrit 39.2 % (37.0-47.0); Hemoglobin 13.6 g/dl (12.0-16.0); Lymphocytes Absolute Auto 2.5 X10*3/uL (1.2-4.9); Lymphocytes Percent Auto 28.7 % (20-40); Mean Corpuscular HGB Conc 34.7 g/dl (31.0-35.0); Mean Corpuscular Volume 86.3 fL (80.0-98.0); Mean Platelet Volume 11.9 fL (9.4-12.3); Monocytes Absolute Auto 0.5 X10*3/uL (0.1-1.2); Monocytes Percent Auto 5.6 % (2-11); Neutrophils Absolute Auto 5.6 x10*3/uL (2.0-8.3); Neutrophils Percent Auto 64.2 % (45-73); Red Blood Count 4.54 X10*6/uL (4.20-5.50); Red Cell Distribution Width 12.2 % (11.0-16.0)
[2024-11-29 18:46] LABS: Alanine Aminotransferase 14 U/L (0-31); Albumin Level 4.8 g/dL (3.5-5.0); Alkaline Phosphatase 49 U/L (39-117); Anion Gap 13 (12-20); Aspartate Amino Transferase 24 U/L (5-31); Bilirubin Total 0.3 mg/dL (0.0-1.0); Blood Urea Nitrogen 11 mg/dL (9-16); Calcium 9.4 mg/dL (8.4-10.2); Carbon Dioxide 23 mmol/L (22-29); Chloride 108 mmol/L (96-108); Estimated Glomerular Filt Rate > 60; Glucose Random 96 mg/dL (60-115); Lipase 12 U/L (8-78); Potassium 4.7 mmol/L (3.3-5.1); Sodium 139 mmol/L (135-145); Total Protein 7.9 g/dL (6.5-8.0)
[2024-11-29 18:49] LABS: Platelet Count 168 X10*3/uL (160-400); SLIDE REVIEW VERIFIED; White Blood Count 8.7 X10*3/uL (4.8-10.8)
[2024-11-29 18:53] LABS: Troponin-I High Sensitivity < 2.7 ng/L (<3.5-17.0)
== END 2024-11-29 22:17 | disposition left against medical advice (07) ==
PROVIDERS: Physician Assistant; Emergency Provider Emergency Medicine; PCP Internal Medicine
DX: R07.9 Chest pain, unspecified (principal); R06.02 Shortness of breath
CPT/HCPCS: 36415; 71046; 80053; 83690; 84484; 85025; 93005; 99283

== ENCOUNTER → 2024-11-29 17:40 | Outpatient (BNV) | payer OTHER, SELFPAY | PROVIDERS: Emergency Provider Emergency Medicine; PCP Internal Medicine; Visit Provider Internal Medicine Cardiovascular Disease | DX: R07.9 Chest pain, unspecified (principal) | CPT/HCPCS: 93010 ==

== ENCOUNTER → 2024-11-29 18:12 | Outpatient (BNV) | payer OTHER, SELFPAY | PROVIDERS: PCP Internal Medicine; Visit Provider Radiology Diagnostic Radiology | DX: R07.9 Chest pain, unspecified (principal) | CPT/HCPCS: 71046 ==

== ENCOUNTER 2025-03-10 12:19 | Outpatient (AMB) | payer OTHER, SELFPAY ==
[2025-03-10 12:27] VITALS: BP 122/78; PULSE 84; O2SAT 98; BMI 30.4
--- NOTE | 2025-03-10 12:27 | A.OFFPC_ITS ---
Vital Signs 03/10/25 12:27 Height 5 ft 5 in Weight 183 lb BMI 30.4 BP 122/78 Blood Pressure Location Rt brachial Position Sitting Pulse 84 Pulse Source Pulse Oximeter Pulse Oximetry (%) 98 Intake Visit Reasons: Medication Review Mill Work Required: No Accompanied by: Self / Same As Patient Allergies No Known Allergies Allergy (Verified 03/10/25 12:27) Medication List - Last Reconciled 03/10/25 by Luann Lopez MD cholecalciferol (vitamin D3) 25 mcg PO DAILY 90 days dextroamphetamine-amphetamine 15 mg ER (Adderall XR) 15 mg PO DAILY fluoxetine 10 mg PO DAILY lorazepam 1 mg PO BEDTIME PRN pantoprazole 20 mg PO DAILY tretinoin 0.025% (Retin-A) appl topical Tobacco use date assessed: 03/10/25 Dental Screening Dental Screen Date: 03/10/25 Did you have a dental visit in the last 12 months?: Yes Did you have a dental problem in the last 6 months where you did not have access to dental care?: No Was dental information given to patient?: Patient has dentist HPI Medication Review HPI Details History of Present Illness The patient is a 29-year-old female presenting with anxiety. 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 - Experiencing breakthrough anxiety sinc e starting a new job and training for overnight shifts, which is a new and unfamiliar experience. - Initially managed well on Fluoxetine, but suggests possible insufficiency at the current dose as anxiety symptoms have resurfaced. - Previously tried Duloxetine, but it wa s ineffective. - Anxiety is associated with the current life changes and situational stress. Medical History: - Anxiety, previously managed with Fluox etine and Duloxetine. Medications: - Fluoxetine 20 mg daily for anxiety. - Adderall as needed, taken infrequently . Social History: - Currently employed in a new job with n ight shift duties, leading to disrupted sleep patterns. - Engaged in training for her new positi on, which contributes to situational anxiety. Diagnostic Results: Labs, tests, and diagnostics: - Prior authorization obtained for Jublia (Efin aconazole) for toenail fungus after trial of oral antifungal treatment. Problem List - Anxiety - Toenail fungus , treatment thru [facility] Patient Instructions - Continue taking Fluoxetine 20 mg daily until further consultation with a psychiatrist. - Schedule an appointment with the new sychiatrist to discuss medication management. - Return for a physical exam in three mo nths if medication management is not resolved by then. Review of Systems - General: No fever no chills - Neurological: No headaches no dizziness - Ear nose throat: No sore throat no hearing difficulty no ear pain - Cardiovascular: No syncope, no chest pain, no palpitations - Gastrointestinal: No nausea vomiting or diarrhea - Endocrine: No polyuria polydipsia no heat intolerance - Genitourinary: No dysuria , no blood in urine Physical Exam General: No acute distress HEENT: No acute findings Neck: Supple Respiratory system: Able to talk in full sentences, no audible wheeze Cardiovascular: S1-S2 regular in rate and rhythm Gastrointestinal: No pain Extremities: No new findings 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 x3 motor intact Skin: Normal turgor [facility] Medical History Vitamin D deficiency Surgical History No pertinent past surgical history Family History Maternal Aunt Breast cancer Paternal Aunt Breast cancer Father Kidney stones High cholesterol Mother Hypothyroid Paternal Aunt Colon cancer Social History Housing: House Alcohol intake: never Patient Tobacco Use Status: Never used Tobacco e-Cigarette/Vaping Use: Never Used service: No Current occupational status: unemployed Current occupation: right handed Cognitive needs: No Hearing needs: No Vision needs: No Female Reproductive History Menstrual Age of Menarche: 12 Questionnaire PHQ-9 Over the last 2 weeks, how often have you been bothered by any of the following problems? 1. Little interest or pleasure in doing things: several days 2. Feeling down, depressed, or hopeless: several days 3. Trouble falling or staying asleep, or sleeping too much: several days 4. Feeling tired or having little energy: nearly every day 5. Poor appetite or overeating: not at all 6. Feeling bad about yourself - or that you are a failure or have let yourself or your family down: not at all 7. Trouble concentrating on things, such as reading the newspaper or watching television: nearly every day 8. Moving or speaking so slowly that other people could have noticed. Or the opposite - being so fidgety or restless that you have been moving around a lot more than usual: nearly every day 9. Thoughts that you would be better off or of hurting yourself in some way: not at all Total score: 12 Depression Screening Interpretation: Positive Depression Screening Done: Yes 11325 - PHQ-9 Billing: Yes Source: Developed by Drs. Adam Mir, Bing Oviedo, Fortino Dodson and colleagues, with an educational spike from [employer]. Thrive Questionnaire Date Thrive assessed: 03/10/25 I am a: Patient What is your living situation today?: I have a steady place to live Within the past 12 months, did the food you bought not last and you didn't have the money to get more?: Never true Within the past 12 months, did you worry whether your food would run out before you got money to buy more?: Never true Do you have trouble paying for medicines?: No Do you have trouble getting transportation to medical appointments?: No Do you have trouble paying your heating and electricity bill?: No Do you have trouble taking care of your child, family member or friend?: No Do you have trouble with day-to-day activities such as bathing, preparing meals, shopping, managing finances, etc.?: No Are you currently unemployed and looking for a job?: I choose not to answer this question Are you interested in more education?: I choose not to answer this question Please select the resources that you would like help with: None Currently or been in a relationship where the following occur: No concerns reported THRIVE Score: 0 AUDIT C Alcohol Use Questionnaire (AUDIT-C) 1. How often do you have a drink containing alcohol?: Never 3. How often do you have six or more drinks on one occasion?: Never Total Score: 0 Score Reviewed/Action Taken: Yes AGUS-7 AMB Questionnaire AGUS-7 Date AGUS - 7 assessed: 03/10/25 Feeling nervous, anxious, or on edge: 2 = More than half the days Not being able to stop or control worryin = More than half the days Worrying too much about different things: 2 = More than half the days Trouble relaxin = More than half the days Being so restless that it is hard to sit still: 2 = More than half the days Becoming easily annoyed or irritable: 2 = More than half the days Feeling afraid as if something awful might happen: 1 = Several days Total AGUS-7 score (0-4 normal; 5-9 mild; 10-14 moderate; 15-21 severe): 13 Source: Developed by Drs. Adam Mir, Bing Oviedo, Fortino Dodson and colleagues, with an educational spike from [employer]. AGUS-7 Assessment Billing AGUS-7 Assessment Tool: AGUS-7 Assessment 70720 Physical exam (Primary Care) Vital Signs: Last Vital Signs Pulse 84 03/10/25 12:27 BP 122/78 03/10/25 12:27 Pulse Ox 98 03/10/25 12:27 BMI result Body Mass Index 30.4 Tobacco/Smoking Status: Tobacco use Status Tobacco use date assessed 03/10/25 03/10/25 12:28 Patient Tobacco Use Status Never used Tobacco 03/10/25 12:28 e-Cigarette/Vaping Use Never Used 03/10/25 12:28 PHQ-9: PHQ-9 Score PHQ-9: Total score 12 03/10/25 13:06 Depression Screening Interpretation: Positive Thrive Assessment: Date of Thrive Assessment Date Thrive assessed 03/10/25 03/10/25 12:28 Currently or been in a relationship where the following occur: No concerns reported Coding Level of Care Code Est Pt Level 3 (87459) Diagnoses Generalized anxiety disorder F41.1 Anxiety disorder type: generalized anxiety disorder Onychomycosis B35.1 Additional Codes AGUS-7 Assessment Billing - AGUS-7 Assessment Tool: AGUS-7 Assessment 88964 ([id number]) PHQ-9 - 29146 - PHQ-9 Billing: Yes ([id number]) Assessment & Plan Assessment & Plan (1) Anxiety disorder: Code(s): F41.9 - Anxiety disorder, unspecified Category: Medical Qualifiers: Anxiety disorder type: generalized anxiety disorder Qualified Code(s): F41.1 - Generalized anxiety disorder (2) Onychomycosis: Code(s): B35.1 - Tinea unguium Category: Medical Plan History of Present Illness The patient is a 29-year-old female presenting with anxiety. 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 - Experiencing breakthrough anxiety since starting a new job and training for overnight shifts, which is a new and unfamiliar experience. - Initially managed well on Fluoxetine, but suggests possible insufficiency at the current dose as anxiety symptoms have resurfaced. - Previously tried Duloxetine, but it was ineffective. - Anxiety is associated with the current life changes and situational stress. Medical History: - Anxiety, previously managed with Fluoxetine and Duloxetine. Medications: - Fluoxetine 20 mg daily for anxiety. - Adderall as needed, taken infrequently. 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 - Engaged in training for her new position, which contributes to situational anxiety. Diagnostic Results: Labs, tests, and diagnostics: - Prior authorization obtained for Jublia (Efinaconazole) for toenail fungus after trial of oral antifungal treatment. Problem List - Anxiety - Toenail fungus , treatment thru Derm Patient Instructions - Continue taking Fluoxetine 20 mg daily until further consultation with a psychiatrist. - Schedule an appointment with the new psychiatrist to discuss medication management. - Return for a physical exam in three months if medication management is not resolved by then. Medications: Changed From fluoxetine 10 mg PO DAILY 90 caps 0RF To fluoxetine 20 mg PO DAILY 90 caps 0RF 90 days
--- OUTSIDE RECORDS SUMMARY | 2025-03-10 14:00 | XMS_ITS | Clinical Summary ---
Author Organization [facility] Address [address] [place] [id number] Phone Care Team Providers Care Real Estate Attorney Name Role Phone Luann Lopez MD Primary Care Provider [phone] Allergies No known active allergies Medications bimatoprost (LATISSE) 0.03 % ophthalmic solution APPLY ONE DROP TO EACH UPPER EYELID ONLY AT LASH LINE, NIGHTLY 01/12/2023 Active VITAMIN D3 25 mcg (1,000 unit) capsule Take 1 capsule by mouth every morning. 12/20/2022 Active ADDERALL XR 15 mg 24 hr capsule Take 15 mg by mouth every morning. 01/02/2023 Active terbinafine HCL (LAMISIL) 250 mg tablet Take 1 tablet by mouth every morning. 01/25/2023 Active RETIN-A 0.025 % cream APPLY THIN LAYER TO AFFECTED AREAS NIGHTLY, START BY USING EVERY 2 OR 3 DAYS FOR THE FIRST 2 WEEKS 01/12/2023 Active Active Problems Problem Noted Date Diagnosed Date Flat foot 02/25/2023 Verruca plantaris 02/25/2023 Bunion 02/25/2023 Immunizations Immunization Administration Dates Next Due COVID-19 (Pre-04/06) Pfizer Vaccine, mRNA, PF 06/19/2021,06/19/2021,12/07/2020,2020,11/15/2020,11/15/2020 Hepatitis B Adult 08/22/2008, 9,03/28/2008,2007,02/16/2008,02/16/2008 Influenza, Unspecified Formulation 04/07/2022 MMR 03/20/2008, 8,02/16/2008,2007 Tdap 01/11/2020,01/11/2020 Social History Tobacco Use Types Packs/Day Years Used Date Smoking Tobacco: Never Smokeless Tobacco: Never Tobacco Cessation:Counseling Given: Not Answered Alcohol Use Standard Drinks/Week Comments Not Currently 0 (1 standard drink = 0.6 oz pur e alcohol) Education Answer Date Recorded Are you interested in more education? Not on surekha e 10/11/2022 Are you concerned about learning? Not on file 10/11/2022 No 10/11/2022 No 10/11/2022 Digital Access Answer Date Recorded No 11/09/2022 No 11/09/2022 Reliable internet access at home? Not on file 11/09/2022 Device with a working camera? Not on file Comments Unknown Sex and Gender Information Value Date Recorded Sex Assigned at Not on file Legal Sex Female 11:30 AM EDT Gender Identity Not on file Sexual Orientation Not on file Last Filed Vital Signs Vital Sign Reading Time Taken Comments Blood Pressure - - Pulse - - Temperature - - Respiratory Rate - - Oxygen Saturation - - Inhaled Oxygen Concentration - - Weight 72.6 kg (160 lb) 02/18/2023 3:48 PM EDT Height 165.1 cm (5' 5 ) 02/18/2023 3:48 PM EDT Body Mass Index 26.63 02/18/2023 3:48 PM EDT Plan of Treatment Health Maintenance Due Date Last Done Comments DEPRESSION SCREENING 2009 HEPATITIS C SCREENING 2015 HIV ONE-TIME SCREENING (18-65 YEARS) 2015 PAP SMEAR 2018 INFLUENZA VACCINE (#1) 2025 04/07/2022 COVID-19 VACCINE ( season) 2025 06/19/2021, 06/19/2021, 12/07/2020, Additional history exists Adult Td,Tdap Booster 01/10/2030 01/11/2020 , 01/11/2020, 08/22/2008, Additional history exists SMOKING STATUS SCREENING (Once After 26 Yrs) Completed 02/18/2023 HEPATITIS A VACCINES Aged Out No long er eligible based on patient's age to complete this topic HIB VACCINES Aged Out No longer eligi ble based on patient's age to complete this topic MENINGOCOCCAL VACCINES (ACWY) Aged Out No longer eligible based on patient's age to complete this topic MENINGOCOCCAL VACCINES (B) Aged Out N o longer eligible based on patient's age to complete this topic PNEUMOCOCCAL VACCINES (0-49 years) Aged Out No longer eligible based on patient's age to complete this topic Medical Devices Not on file Insurance ACO ACO ACO ACO ACO ACO ACO ACO ACO Care Teams Real Estate Attorney Relationship Specialty Start Date End Date Luann Lopez MD [address] [facility] [place] [address] PCP - General Internal Medicine 10/21/21 Additional Source Comments The information contained in this document represents components of the legal health record. It is not the complete legal health record.[facility]
--- OUTSIDE RECORDS SUMMARY | 2025-03-10 14:00 | XMS_ITS | Clinical Summary ---
Author Organization [facility] Address [address] [place] [address] Care Team Providers Care Hand Spinner Name Role Phone Kelly Cabrera MD Primary Care Provider [phone] Source Comments PLEASE NOTE, if this patient is a minor, it may be UNLAWFUL to discuss sensitive information that is contained in these records (such as FAMILY PLANNING, MENTAL HEALTH or SUBSTANCE ABUSE) with the minor patient's parent or other person without the patient's specific authorization.[facility] Allergies No known active allergies Medications ergocalciferol, vitamin D2, (VITAMIN D2) 50,000 unit capsule Take 1 Cap by mouth once a week. 4 Cap 2 01/10/2015 Active Active Problems Problem Noted Date Diagnosed Date Vitamin D insufficiency 12/24/2011 Overview (11/24/2013): Vit D 7 Immune to varicella 01/21/2008 Immunizations Immunization Administration Dates Next Due HEP B, PED/ADOL ([id number]/RECOMBIVAX-PEDS) 08/22/2008,03/28/2008,02/16/2008 Hep A, Ped/adol, 2 Dose 11/24/2013,03/28/2008 INFLUENZA, SEASONAL, INJECTABLE 05/05/2012,03/28 INFLUENZA, SEASONAL, INJECTA BLE, PRESERVATIVE FREE 05/19/2013 IPV (IPOL) 01/08/2015, 9,04/06/2008,02/15 MENINGOCOCCAL MCV4P (MENACTRA) 01/08/2015 MENINGOCOCCAL VACCINE,CONJUG ATE (NON-INTERFACE) 08/22/2008 MMR (MMR II/Priorix) 03/20/2008,02/16/2008 PPD 01/08/2015,11/25/2013 TDAP 08/22/2008,02/16/2008 Td (adult), 5 Lf tetanus tox oid (Tenivac), preservative free 11/24/2013 Td (adult),2 Lf tetanus toxo id (TDVAX), preservative free 03/20/2008 Social History Tobacco Use Types Packs/Day Years Used Date Smoking Tobacco: Passive Smo ke Exposure - Never Smoker Alcohol Use Standard Drinks/Week Comments No 0 (1 standard drink = 0.6 oz pur e alcohol) Social Connections Answer Date Recorded Social Connections and Isolation 0 02/05/2019 Financial Resource Strain Answer Date R ecorded Financial Resource Strain 0 2018 Stress Answer Date Recorded Stress 0 02/05/2019 Physical Activity Answer Date Recorded Physical Activity 0 02/05/2019 Food Insecurity Answer Date Recorded Food 0 02/05/2019 Transportation Needs Answer Date Record ed Transportation 0 02/05/2019 Housing Stability Answer Date Recorded Housing 0 02/05/2019 Safety and Environment Answer Date Demetrius rded Safety 0 02/05/2019 Utilities Answer Date Recorded Utilities 0 02/05/2019 Employment Answer Date Recorded Employment 0 02/05/2019 Comments No Sex and Gender Information Value Date Recorded Sex Assigned at Not on file Legal Sex Female 11:36 AM PDT Gender Identity Not on file Sexual Orientation Not on file Last Filed Vital Signs Vital Sign Reading Time Taken Comments Blood Pressure 112/78 01/08/2015 11:13 AM EDT Pulse 102 01/08/2015 11:13 AM EDT Temperature 36.4 C (97.5 F) 01/08/2015 11:13 AM EDT Respiratory Rate 25 01/08/2015 11:13 AM EDT Oxygen Saturation - - Inhaled Oxygen Concentration - - Weight 67.6 kg (149 lb) 01/08/2015 11:13 AM EDT Height 165.1 cm (5' 5 ) 01/08/2015 11:13 AM EDT Body Mass Index 24.79 01/08/2015 11:13 AM EDT Plan of Treatment Not on file Insurance [facility] Member Subscriber Plan / Payer (Ef fective 2013-Present) Name:Oliva Cabrera Relation to Subscriber:Self Name:Oliva Cabrera Payer ID:[id number] Group ID:[id number] Type:Medicaid Address: [facility] [address] [place] [address] Care Teams Hand Spinner Relationship Specialty Start Date End Date Kelly Cabrera MD [phone] [place] [address] PCP - General Pediatrics 05/19/13
--- OUTSIDE RECORDS SUMMARY | 2025-03-10 14:00 | XMS_ITS | Clinical Summary ---
Author Organization [facility] Address [address] [place] [address] Care Team Providers Care Recreation Technician Name Role Phone Pcp, No Primary Care Provider Unavailabl e Social History Tobacco Use Types Packs/Day Years Used Date Smoking Tobacco: Never Assessed Comments Unknown Sex and Gender Information Value Date Recorded Sex Assigned at Not on file Legal Sex Female 10:47 AM EDT Gender Identity Not on file Sexual Orientation Not on file Plan of Treatment Health Maintenance Due Date Last Done Comments Hepatitis C Virus Screening 1997 HIV Screening 2010 DTaP/Tdap/Td Vaccines (1 - Tdap) 2016 Hepatitis B Vaccines (1 of 3 - 19+ 3-dose series) 2016 Pap Smear (Ages 21-65) 2018 HPV Vaccines (1 - 3-dose SCDM series) 2024 Influenza Vaccine 01/13/2025 05/16/2024, , 05/19/2013, Additional history exists COVID-19 Vaccine ( season) 2025 06/19/2021, 12/07/2020, 11/15/2020 Pneumococcal Vaccine: Pediatric (0-5 Years) and At-Risk Patients (6 to 49 Years) Aged Out No longer eligible based on patient's age to complete this topic Care Teams Recreation Technician Relationship Specialty Start Date End Date Pcp, No PCP - General General Medicine 09/28/24
== END 2025-03-10 12:54 | disposition home or self-care (01) ==
LOC: HO.HMCC 12:20
PROVIDERS: PCP Internal Medicine; Visit Provider Internal Medicine
DX: F41.1 Generalized anxiety disorder (principal); B35.1 Tinea unguium

== ENCOUNTER → 2025-03-10 12:19 | Outpatient (BNVA) | payer OTHER, SELFPAY | PROVIDERS: PCP Internal Medicine; Visit Provider Internal Medicine | DX: F41.1 Generalized anxiety disorder (principal); B35.1 Tinea unguium | CPT/HCPCS: 96127; 99212 ==